=== PATIENT | male | born 1930 | race Hispanic/Latino ===

== ENCOUNTER 2017-01-19 18:47 | Inpatient (IN) | payer MEDICARE ==
--- NOTE | 2017-01-19 19:08 | CT ---
PROCEDURE: CT HEAD WITHOUT CONTRAST. HISTORY: Slurred speech COMPARISON: Noncontrast head CT performed 01/18/16 TECHNIQUE: Axial computed tomography images were obtained through the head/brain without intravenous contrast. Radiation dose: Total exam DLP = 725.71 mGy-cm. This CT exam was performed using one or more of the following dose reduction techniques: Automated exposure control, adjustment of the mA and/or kV according to patient size, and/or use of iterative reconstruction technique. FINDINGS: HEMORRHAGE: No intracranial hemorrhage. BRAIN: Diffuse atrophy with prominence of the ventricles and sulci noted. No mass effect or edema. Dense intracranial atherosclerosis. Scattered periventricular and subcortical white matter hypodensities, which are nonspecific, but often seen with chronic microvascular ischemic disease. Please note that MRI with diffusion imaging is more sensitive in the detection of acute ischemic event. VENTRICLES: No hydrocephalus. CALVARIUM: Unremarkable. PARANASAL SINUSES: Unremarkable as visualized. No significant inflammatory changes. MASTOID AIR CELLS: Unremarkable as visualized. No inflammatory changes. OTHER FINDINGS: None. IMPRESSION: Generalized atrophy. Nonspecific white matter changes. Findings discussed with Dr. Wade on 01/19/17 at 7:05 p.m..
[2017-01-19 19:09] VITALS: BMI 21.5
[2017-01-19 19:24] LABS: BASO # 0.01 K/mm3 (0.0-2.0); BASO % 0.1 % (0.0-3.0); GRAN # 9.38 (1.4-6.5); GRAN % 96.8 % (50.0-68.0); HEMATOCRIT 40.5 % (42.0-52.0); LYMPH # 0.2 (1.2-3.4); LYMPH % 2.1 % (22.0-35.0); MEAN CELL VOLUME 96.4 fl (80.0-105.0); MEAN CORPUSCULAR HEMOGLOBIN 31.7 pg (25.0-35.0); MEAN CORPUSCULAR HGB CONC 32.8 g/dl (31.0-37.0); MEAN PLATELET VOLUME 10.5 fl (7.0-11.0); MONO # 0.1 (0.1-0.6); PLATELET COUNT 200 10^3/uL (120.0-450.0); RED CELL DISTRIBUTION WIDTH 12.5 % (11.5-14.5); WHITE BLOOD COUNT 9.7 10^3/ul (4.5-11.0)
[2017-01-19 19:35] LABS: ALB/GLOB RATIO 1.5 (1.1-1.8); ALKALINE PHOSPHATASE 92 U/L (38-126); ALT/SGPT 47 U/L (7-56); AST/SGOT 31 U/L (17-59); BILIRUBIN,TOTAL 0.7 mg/dL (0.2-1.3); BLOOD UREA NITROGEN 20 mg/dL (7-21); CALCIUM 9.2 mg/dL (8.4-10.5); CARBON DIOXIDE 32 mmol/L (21-33); CHLORIDE 100 mmol/L (98-107); CHOLESTEROL 127 mg/dL (130-200); GFR AFRICAN-AMERICAN > 60; GLUCOSE,RANDOM 119 mg/dL (70-110); SODIUM 141 mmol/L (132-148); TOTAL PROTEIN 6.4 g/dL (5.8-8.3)
[2017-01-19 19:36] LABS: INR 1.13 (0.93-1.08); PARTIAL THROMBOPLASTIN TIME 28.3 Seconds (25.1-36.5)
--- NOTE | 2017-01-19 19:44 | EDPD ---
HPI Stroke - General Time Seen by Provider: 01/19/17 18:50 Chief Complaint: Weakness/Neurological Deficit Historian: Patient, Family, EMS - History of Present Illness Narrative History of Present Illness (Free Text): 01/19/17 19:41 Patient is an 87 yo male, past medical history of hypertension, present to the Emergency Department with and upkeep mechanic with history of intermittent slurred speech since 3:10 pm today. Patient reportedly was in his normal state of health this morning and for the past few days. He went to see a physician for pain in his right knee and received a "steroid shot" "into the right knee". Patient while at the doctor's office "stared to slur his speech". The family took patient home and noted that slurred speech had resolved half hour later although "his legs were weak". Patient reportedly was at his baseline mental status and speech until approximately 4:30 pm he developed slurred speech again "for a few minutes then it went away." Patient did not wish to come to the hospital and alurred speech resolved, then would "come and go". Family brought patient to ER as he again developed slurred speech prior to arrival, but upon arrival to ED it has again resolved. Patient denies headaches, denies visual symptoms, denies chest pain or palpitations or shortness of breath. Reports constipation, denies incontinence of urine or stool. Denies recent trauma. Denies neck pain or dizziness. Date:: 01/19/17 Time: 15:10 Timing: Intermittent rTPA Inclusion/Exclusion - Refusal of Treatment Patient Refused Treatment: Yes - Inclusion Criteria for Altepase The Clinical Diagnosis of Ischemic Stroke That is Causing a Potentially Disabling Neurological Deficit: Yes Risk/Benefit Discussed With Patient/Family Member Present: Yes - Warning to TPA With Conditions Following Conditions Weighed Against Anticipated Benefit: Yes Condition: Stroke Serevity Too Mild, Rapid Improvement, Age Greater Than 75 years Additional Condition (For 3-4.5 Hour Window): Age Greater Than 80 Past Medical History - Infectious Disease Hx of Infectious Diseases: None - Tetanus Immunization Tetanus Immunization: Unknown - Cardiac Hx Hypertension: Yes - Pulmonary Hx Respiratory Disorders: No - Neurological Hx Dementia: Yes Hx Paralysis: No - HEENT Hx HEENT Disorder: No (WEARS RX GLASSES) Hx Deafness: Yes (hard of hearing) - Renal Hx Renal Disorder: No - Endocrine/Metabolic Hx Endocrine Disorders: No - Hematological/Oncological Hx Blood Transfusions: No Hx Blood Transfusion Reaction: No - Integumentary Hx Dermatological Disorder: No - Musculoskeletal/Rheumatological Hx Arthritis: Yes (hands and knees) - Gastrointestinal Hx Gastrointestinal Disorders: Yes (constipation) - Genitourinary/Gynecological Hx Genitourinary Disorders: Yes (URINARY FRQUENCY) Hx Prostate Problems: Yes (PROSTATE CA) - Psychiatric Hx Emotional Abuse: No Hx Physical Abuse: No Hx Substance Use: No - Past Surgical History Past Surgical History: Non-Contributing - Surgical History Other/Comment: left femoral fracture - Anesthesia Hx Anesthesia Reactions: No Hx Malignant Hyperthermia: No - Suicidal Assessment Feels Threatened In Home Enviroment: No Allergies/Home Meds Allergies/Adverse Reactions: Allergies No Known Allergies Allergy (Verified 01/19/17 19:11) Home Medications: Home Meds Medication Instructions Recorded Confirmed Lorazepam [Ativan] 0.5 mg PO HS 01/19/17 01/19/17 Lubiprostone [Amitiza] 8 mcg PO DAILY 01/19/17 01/19/17 amLODIPine [Norvasc] 2.5 mg PO DAILY 01/19/17 01/19/17 Review of Systems - Review of Systems Constitutional: Fatigue. absent: Fevers Eyes: absent: Vision Changes, Eye Pain ENT: absent: Hearing Changes, Sore Throat Respiratory: absent: SOB Cardiovascular: absent: Chest Pain, Edema, MENA Gastrointestinal: absent: Abdominal Pain, Nausea, Vomiting Genitourinary Male: absent: Dysuria, Frequency Musculoskeletal: absent: Back Pain, Neck Pain Skin: absent: Rash Neurological: Gait Changes, Speech Changes, Facial Droop. absent: Headache, Dizziness, Focal Weakness, Seizure Endocrine: absent: Polyuria Hemo/Lymphatic: absent: Easy Bleeding Psychiatric: absent: Depression ED Stroke Physical Exam Vital Signs Reviewed: Yes Temperature: Afebrile Appearance: Positive for: Non-Toxic Pain Distress: None Mental Status: Positive for: Alert and Oriented X 3 Finger Stick Blood Glucose: 110 - Systems Exam Head: Present: Atraumatic Pupils: Present: PERRL Extroacular Muscles: Present: EOMI, Other (visual acuity and visual cornelius intact) Mouth: Present: Moist Mucous Membranes Pharnyx: No: ERYTHEMA Neck: Present: Normal Range of Motion. No: Meningeal Signs, MIDLINE TENDERNESS , Bruit Respiratory/Chest: Present: Clear to Auscultation. No: Respiratory Distress Cardiovascular: Present: Regular Rate and Rhythm, Murmurs Abdomen: Present: Distention. No: Tenderness, Peritoneal Signs Rectal: No: Gross Blood Back: No: CVA Tenderness, Midline Tenderness Upper Extremity: No: Cyanosis, Edema Lower Extremity: Present: NORMAL PULSES, Neurovascularly Intact. No: Edema, CALF TENDERNESS Neurologic: Present: CN II-XII Intact (mild facial asymmetry, ? slight droop right face), Speech Normal (mild slurred speech), Normal Sensory Function, Norm Deep Tendon Reflexes. No: Pronator Drift, Dysmetric Finger to Nose, Dysmetric Heel to Chin Skin: Present: Warm Psychiatric: Present: Alert, Oriented x 3, Normal Insight, Normal Concentration Medical Decision Making ED Course and Treatment: 01/19/17 20:08 Patient's history obtained from patient, , and upkeep mechanic. Patient reportedly with similar episode of slurred speech "after a steroid shot in his leg" "two months ago" but "it went away and he never had any problems afterwards ". Patient and family state that he was in his normal state of health this morning, and developed symptoms while at physician's office starting at 3:10 pm. He denies headache, denies chest pain, denies shortness of breath. There is no rash or angioedema, no wheezing. Upon arrival to the ED he was evaluated in stretcher with and upkeep mechanic, who state that "he is back to normal". CODE STROKE was called as he had been symptomatic and it was described as intermittent since 3:10 pm. INITIAL EXAM HE HAD NO SLURRED SPEECH. Upon return from CT head, he was re-examined at 19:10 and had mild slurred speech, no facial droop or focal extremity weakness. Case d/w Dr. Adriane jaimes, neurology. As symptoms mild, with subsequent resolution of slurred speech on re-exam at 20:00, patient and family did not wish for TPA as risks/benefits reviewed and symptoms again resolved. On examination, the patient denied headache or chest pain or sob. EKG revealed pacs, st changes anterior leads which were noted on prior EKG, clinically correlated with symptoms of NO CHEST PAIN OR SOB. PMD is Dr. Koroma, will admit for serial exams, monitoring, neuro consultation. ASA ordered. He is at baseline at this time as per family. CXR appears unchanged from previous 01/09. Denies chest pain or sob. Carotid ultrasound ordered as per Dr. Adriane Jaimes, result pending at time of admission at 2100, endorsed to admitting team to follow-up results. - Lab Interpretations Lab Results: 01/19/17 19:18 01/19/17 19:18 Lab Results 01/19/17 19:18: Blood Type Pending, Antibody Screen Pending, BBK History Checked Patient has bt 01/19/17 19:18: Sodium 141, Potassium 4.0, Chloride 100, Carbon Dioxide 32, Anion Gap 13, BUN 20, Creatinine 0.7 L, Est GFR ( Amer) > 60, Est GFR ( Non-Af Amer) > 60, Random Glucose 119 H, Calcium 9.2, Total Bilirubin 0.7, AST 31, ALT 47, Alkaline Phosphatase 92, Total Creatine Kinase 34 L, Troponin I Pending, Total Protein 6.4, Albumin 3.9, Globulin 2.6, Albumin/Globulin Ratio 1.5, Triglycerides 44, Cholesterol 127 L, LDL Cholesterol Direct Pending, HDL Cholesterol 48 01/19/17 19:18: PT 12.4, INR 1.13 H, APTT 28.3 01/19/17 19:18: WBC 9.7, RBC 4.20, Hgb 13.3 L, Hct 40.5 L, MCV 96.4, MCH 31.7, MCHC 32.8, RDW 12.5, Plt Count 200, MPV 10.5, Gran % 96.8 H, Lymph % (Auto) 2.1 L, Callaway % (Auto) 1.0, Eos % (Auto) 0.0 L, Baso % (Auto) 0.1, Gran # 9.38 H, Lymph # 0.2 L, Callaway # 0.1, Eos # 0.0, Baso # 0.01, Neutrophils % (Manual) Pending, Lymphocytes % (Manual) Pending, Monocytes % (Manual) Pending - RAD Interpretation Radiology Orders: 01/19/17 18:52 HEAD W/O (CODE STROKE) [CT] Stat 01/19/17 18:56 CXR [CHEST ONE VIEW] [RAD] Stat 01/19/17 19:14 CAROTID & VERTEBRAL DUPLEX [US] Stat - EKG Interpretation EKG Interpretation (Text): 01/19/17 19:56 EKG at 19:10 normal sinus rhythm with first degree av block, left ventricular hypertrophy, similar to prior EKG 01/19/17 20:01 Interpreted by ED Physician: Yes Type: 12 lead EKG Comparison: Similar to previous EKG NIHSS Scale ([place]) Time Performed: 19:47 - How Severe is the Stoke Baseline Level of Consciousness: 0=Alert LOC to Questions: 0=Both comments correct LOC to commands: 0=Obeys both correctly Best Gaze: 0=Normal Visual: 0=No visual loss Facial: 1=Minor asymmetry Motor Arm - Left: 0=No drift Motor Arm - Right: 0=No drift Motor Leg - Left: 0=No drift Motor Leg - Right: 0=No drift Limb Ataxia: 0=Absent Sensory: 0=Normal Best Language: 0=No aphasia Dysarthia: 1=Mild to moderate slurring Extinction & Inattention (Neglect): 0=Normal, no object Score: 2 Risk Level: Minor Stroke Risk Disposition/Present on Arrival - Present on Arrival Any Indicators Present on Arrival: No History of DVT/PE: No History of Uncontrolled Diabetes: No Urinary Catheter: No History of Decub. Ulcer: No History Surgical Site Infection Following: None - Disposition Have Diagnosis and Disposition been Completed?: Yes Diagnosis: CVA (cerebral vascular accident), Abnormal EKG, Slurred speech Disposition: HOSPITALIZED Disposition Time: 20:00 Patient Plan: Admission, Telemetry Patient Problems: Current Active Problems Problem Status Onset Abnormal EKG Acute CVA (cerebral vascular accident) Acute Condition: SERIOUS
[2017-01-19 19:48] LABS: TROPONIN I 0.02 ng/mL
[2017-01-19 19:59] LABS: NEUTROPHIL 95 % (50.0-70.0); PLATELET ESTIMATE NORMAL (NORMAL)
--- NOTE | 2017-01-19 22:28 | CP.PCM.HP ---
<Juancho Bingham - Last Filed: 01/20/17 07:33> History of Present Illness - History of Present Illness History of Present Illness: CC: Slurred speech and overall weakness This is a 87 year old male with a past medical history of hypertension and arthritis who comes into the emergency department complaining of new onset slurred speech and overall weakness since 3:10pm. this afternoon. The patient reports going to Dr. Dalton his pain management doctor for a steroid injection into his right knee and soon after began to experience slurred speech and generalized weakness. The patient then went home and the slurred speech and weakness improved however shortly thereafter the symptoms returned and his niece and aide decided it was best to come in. The patient reports lightheadedness in conjunction with the symptoms. The patient denies chest pain , shortness of breath, sore throat, abdominal pain, changes in vision, constipation, diarrhea, or any other complaints. PMD: Dr. Koroma Past medical history: see HPI Medications: Norvasc Allergies: NKDA Social: Social drinker. Denies smoking or illicit drug use Present on Admission - Present on Admission Any Indicators Present on Admission: No Review of Systems - Constitutional Constitutional: Weakness. absent: Chills, Fever, Frequent Falls, Headache, Night Sweats, Snoring, Weight Loss - EENT Eyes: absent: Blurred Vision, Diplopia, Discharge, Dry Eye, Itchy Eyes, Loss of Peripheral Vision, Loss of Vision Ears: absent: Ear Discharge, Disequilibrium, Dizziness Nose/Mouth/Throat: absent: Nasal Congestion, Nose Pain, Dry Mouth, Dysphagia, Mouth Pain - Cardiovascular Cardiovascular: absent: Chest Pain, Claudication, Diaphoresis, Dyspnea, Edema, Irregular Heart Rhythm, Orthopnea, Palpitations - Respiratory Respiratory: absent: Cough, Dyspnea, Hemoptysis, Dyspnea on Exertion, Snoring - Gastrointestinal Gastrointestinal: absent: Abdominal Pain, Belching, Cramping, Diarrhea, Heartburn, Loose Stools, Nausea, Vomiting - Genitourinary Genitourinary: absent: Change in Urinary Stream, Pyuria, Nocturia - Musculoskeletal Musculoskeletal: Muscle Weakness. absent: Myalgias, Stiffness, Tingling - Integumentary Integumentary: absent: Rash, Sores, Swelling - Neurological Neurological: absent: Disequilibrium, Dizziness, Numbness, Headaches, Syncope, Vertigo, Weakness - Psychiatric Psychiatric: Confusion - Endocrine Endocrine: absent: Palpitations, Polydipsia, Polyphagia, Polyuria - Hematologic/Lymphatic Hematologic: absent: Easy Bleeding, Easy Bruising Past Patient History - Infectious Disease Hx of Infectious Diseases: None - Tetanus Immunizations Tetanus Immunization: Unknown - Past Social History Smoking Status: Never Smoked - CARDIAC Hx Hypertension: Yes - PULMONARY Hx Respiratory Disorders: No - NEUROLOGICAL Hx Dementia: Yes Hx Paralysis: No - HEENT Hx HEENT Problems: No (WEARS RX GLASSES) Hx Deafness: Yes (hard of hearing) - RENAL Hx Chronic Kidney Disease: No - ENDOCRINE/METABOLIC Hx Endocrine Disorders: No - HEMATOLOGICAL/ONCOLOGICAL Hx Blood Transfusions: No Hx Blood Transfusion Reaction: No - INTEGUMENTARY Hx Dermatological Problems: No - MUSCULOSKELETAL/RHEUMATOLOGICAL Hx Arthritis: Yes (hands and knees) - GASTROINTESTINAL Hx Gastrointestinal Disorders: Yes (constipation) - GENITOURINARY/GYNECOLOGICAL Hx Genitourinary Disorders: Yes (URINARY FRQUENCY) Hx Prostate Problems: Yes (PROSTATE CA) - PSYCHIATRIC Hx Emotional Abuse: No Hx Physical Abuse: No Hx Substance Use: No - SURGICAL HISTORY Other/Comment: left femoral fracture - ANESTHESIA Hx Anesthesia Reactions: No Hx Malignant Hyperthermia: No Meds Home Medications: Home Medication List Medication Instructions Recorded Confirmed Type Aspirin [Ecotrin] 81 mg PO DAILY tabec 01/21/17 Rx Pantoprazole [Protonix] 40 mg PO DAILY #14 ect 01/21/17 Rx amLODIPine [Norvasc] 5 mg PO DAILY #15 tab 01/21/17 Rx Allergies/Adverse Reactions: Allergies Allergy/AdvReac Type Severity Reaction Status Date / Time No Known Allergies Allergy Verified 01/19/17 19:11 Physical Exam - Head Exam Head Exam: ATRAUMATIC, NORMAL INSPECTION, NORMOCEPHALIC - Eye Exam Eye Exam: EOMI, Normal appearance, PERRL Pupil Exam: NORMAL ACCOMODATION, PERRL. absent: Irregular, Miosis - ENT Exam ENT Exam: Mucous Membranes Moist, Normal Exam. absent: Normal Oropharynx, TM's Normal Bilaterally - Neck Exam Neck exam: Positive for: Normal Inspection. Negative for: Lymphadenopathy, Thyromegaly - Respiratory Exam Respiratory Exam: Clear to Auscultation Bilateral, NORMAL BREATHING PATTERN. absent: Accessory Muscle Use, Chest Wall Tenderness, Prolonged Expiratory Phase , Respiratory Distress - Cardiovascular Exam Cardiovascular Exam: REGULAR RHYTHM, +S1, +S2. absent: Gallop, Rubs - GI/Abdominal Exam GI & Abdominal Exam: Normal Bowel Sounds, Soft. absent: Organomegaly, Tenderness - Extremities Exam Extremities exam: Positive for: normal inspection. Negative for: joint swelling , tenderness Additional comments: M/S intact bilaterally in upper and lower extremities - Back Exam Back exam: NORMAL INSPECTION. absent: CVA tenderness (L), CVA tenderness (R), paraspinal tenderness, rash noted - Neurological Exam Neurological exam: Alert, CN II-XII Intact - Psychiatric Exam Psychiatric exam: Normal Affect, Normal Mood - Skin Skin Exam: Dry, Intact, Normal Color Results - Vital Signs Recent Vital Signs: Last Vital Signs Temp 98.1 F 01/19/17 18:55 Pulse 72 01/19/17 20:51 Resp 20 01/19/17 20:51 BP 137/80 01/19/17 20:30 Pulse Ox 97 01/19/17 20:51 - Labs Result Diagrams: 01/20/17 05:10 01/20/17 05:10 Assessment & Plan - Assessment and Plan (Free Text) Assessment: This is a 87 year old male with a past medical history of hypertension and arthritis who is being admitted for T.I.A.. Plan: 1. T.I.A. vs CVA vs. Acute hemorrhage -Head ct done in the emergency department showed general atrophy and non specific white matter changes. Negative for acute bleeding. -Carotid U/S ordered. Will f/u with results. -Neuro consulted. Will f/u with rec's. -Cardio consulted. Will f/u with rec's. -Head MRI ordered. Will f/u with results. -Swallow eval ordered. Will f/u with results. NPO until exam resulted. 2.Hypertension -cont home medications. 3. Arthritis -Recently received injection into the right knee. -No intervention required at this time. GI ppx -Protonix DVT PPX -SCD's <Ronel Roper - Last Filed: 01/23/17 20:42> Results - Vital Signs Recent Vital Signs: Last Vital Signs Temp 98.7 F 01/21/17 06:00 Pulse 64 01/21/17 09:06 Resp 19 01/21/17 06:00 BP 174/81 H 01/21/17 09:06 Pulse Ox 96 01/21/17 06:00 - Labs Result Diagrams: 01/21/17 06:00 01/21/17 06:00 Attending/Attestation - Attestation I have personally seen and examined this patient.: Yes I have fully participated in the care of the patient.: Yes I have reviewed all pertinent clinical information: Yes
[2017-01-19] MEDS: Sodium Chloride 0.9% 1,000 ML IV SCH (22:41)
[2017-01-20 06:45] LABS: BASO # 0.01 K/mm3 (0.0-2.0); BASO % 0.2 % (0.0-3.0); EOS % 0.2 % (1.5-5.0); GRAN # 5.79 (1.4-6.5); GRAN % 89.6 % (50.0-68.0); HEMATOCRIT 35.1 % (42.0-52.0); LYMPH # 0.2 (1.2-3.4); LYMPH % 3.3 % (22.0-35.0); MEAN CELL VOLUME 95.9 fl (80.0-105.0); MEAN CORPUSCULAR HEMOGLOBIN 30.9 pg (25.0-35.0); MEAN CORPUSCULAR HGB CONC 32.2 g/dl (31.0-37.0); MEAN PLATELET VOLUME 10.7 fl (7.0-11.0); MONO # 0.4 (0.1-0.6); MONO % 6.7 % (1.0-6.0); RED CELL DISTRIBUTION WIDTH 12.6 % (11.5-14.5); WHITE BLOOD COUNT 6.5 10^3/ul (4.5-11.0)
[2017-01-20 07:00] LABS: ALB/GLOB RATIO 1.2 (1.1-1.8); ALKALINE PHOSPHATASE 68 U/L (38-126); ALT/SGPT 53 U/L (7-56); AST/SGOT 42 U/L (17-59); BILIRUBIN,TOTAL 0.7 mg/dL (0.2-1.3); BLOOD UREA NITROGEN 24 mg/dL (7-21); CALCIUM 8.6 mg/dL (8.4-10.5); CARBON DIOXIDE 26 mmol/L (21-33); CHLORIDE 105 mmol/L (98-107); CHOLESTEROL 102 mg/dL (130-200); GFR AFRICAN-AMERICAN > 60; GLUCOSE,RANDOM 105 mg/dL (70-110); MAGNESIUM 1.9 mg/dL (1.7-2.2); PHOSPHOROUS 4.3 mg/dL (2.5-4.5); POTASSIUM 3.9 mmol/L (3.6-5.0); SODIUM 141 mmol/L (132-148); TOTAL PROTEIN 5.8 g/dL (5.8-8.3)
--- NOTE | 2017-01-20 08:45 | RAD ---
PROCEDURE: CHEST RADIOGRAPH, 1 VIEW HISTORY: Slurred speech COMPARISON: 01/05/2016. FINDINGS: LUNGS: The lungs are well inflated and clear. PLEURA: No pneumothorax or pleural fluid seen. CARDIOVASCULAR: The heart is normal in size. Atherosclerotic aortic arch calcifications are present. OSSEOUS STRUCTURES: No significant abnormalities. VISUALIZED UPPER ABDOMEN: Normal. OTHER FINDINGS: None. IMPRESSION: No active pulmonary disease.
--- NOTE | 2017-01-20 08:47 | CARD ---
APPROVED REPORT EKG Measurement Heart [id number] <Conclusion> Sinus rhythm with 1st degree AV block Left axis deviation RVCD ST elevations V1, V2 with peaked T wave V3, R/O acute ischemia/VT
[2017-01-20] MEDS: Sodium Chloride 0.9% 1,000 ML IV SCH (10:25)
--- NOTE | 2017-01-20 10:31 | CP.PCM.HP ---
History of Present Illness - History of Present Illness History of Present Illness: Neurology consult note for Dr. Carver's service - Hayden Carr PGY2 Reason for consult: TIA/CVA HPI: Patient is an 87 year-old male with past medical history of hypertension and arthritis who presented to [facility] c/o new onset slurred speech and overall weakness that started at approximately 3pm yesterday. The patient stated that he was at pain management doctor's office where he received a right knee injection and shortly thereafter began experiencing generalized weakness associated with slurred speech. He reported going home where his symptoms improved and then subsequently worsening which prompted his visit to the emergency room. He stated that he was lightheaded however denied any chest pain , palpitations, SOB, abdominal pain, nausea, vomiting, fever, chills, numbness, tingling, vision changes. 12point ROS as per HPI otherwise negative PMH: see above Medications: Reviewed and as per EMR Allergies: NKDA Social: Denies tobacco and illicit drug use; Social alcohol use Family Hx: Reviewed, non-contributory PMD: Dr. Koroma Present on Admission - Present on Admission Any Indicators Present on Admission: No Past Patient History - Infectious Disease Hx of Infectious Diseases: None - Tetanus Immunizations Tetanus Immunization: Unknown - Past Social History Smoking Status: Never Smoked - CARDIAC Hx Hypertension: Yes - PULMONARY Hx Respiratory Disorders: No - NEUROLOGICAL Hx Dementia: Yes Hx Paralysis: No - HEENT Hx HEENT Problems: No (WEARS RX GLASSES) Hx Deafness: Yes (hard of hearing) - RENAL Hx Chronic Kidney Disease: No - ENDOCRINE/METABOLIC Hx Endocrine Disorders: No - HEMATOLOGICAL/ONCOLOGICAL Hx Blood Transfusions: No Hx Blood Transfusion Reaction: No - INTEGUMENTARY Hx Dermatological Problems: No - MUSCULOSKELETAL/RHEUMATOLOGICAL Hx Arthritis: Yes (hands and knees) - GASTROINTESTINAL Hx Gastrointestinal Disorders: Yes (constipation) - GENITOURINARY/GYNECOLOGICAL Hx Genitourinary Disorders: Yes (URINARY FRQUENCY) Hx Prostate Problems: Yes (PROSTATE CA) - PSYCHIATRIC Hx Emotional Abuse: No Hx Physical Abuse: No Hx Substance Use: No - SURGICAL HISTORY Other/Comment: left femoral fracture - ANESTHESIA Hx Anesthesia Reactions: No Hx Malignant Hyperthermia: No Meds Allergies/Adverse Reactions: Allergies Allergy/AdvReac Type Severity Reaction Status Date / Time No Known Allergies Allergy Verified 01/19/17 19:11 Results - Vital Signs Recent Vital Signs: Last Vital Signs Temp 98.1 F 01/20/17 06:01 Pulse 70 01/20/17 06:01 Resp 19 01/20/17 06:01 BP 143/74 01/20/17 06:01 Pulse Ox 97 01/20/17 06:01 - Labs Result Diagrams: 01/20/17 05:10 01/20/17 05:10 Labs: Laboratory Results - last 24 hr 01/19/17 01/20/17 01/20/17 21:47 05:10 05:10 WBC 6.5 D RBC 3.66 Hgb 11.3 L D Hct 35.1 L MCV 95.9 MCH 30.9 MCHC 32.2 RDW 12.6 Plt Count 186 MPV 10.7 Gran % 89.6 H Lymph % (Auto) 3.3 L Kerr % (Auto) 6.7 H Eos % (Auto) 0.2 L Baso % (Auto) 0.2 Gran # 5.79 Lymph # 0.2 L Kerr # 0.4 Eos # 0.0 Baso # 0.01 Sodium 141 Potassium 3.9 Chloride 105 Carbon Dioxide 26 Anion Gap 14 BUN 24 H Creatinine 0.8 Est GFR ( Amer) > 60 Est GFR (Non-Af Amer) > 60 POC Glucose (mg/dL) 165 H Random Glucose 105 Calcium 8.6 Phosphorus 4.3 Magnesium 1.9 Total Bilirubin 0.7 AST 42 ALT 53 Alkaline Phosphatase 68 Total Protein 5.8 Albumin 3.2 Globulin 2.6 Albumin/Globulin Ratio 1.2 Triglycerides 28 L Cholesterol 102 L LDL Cholesterol Direct 58 HDL Cholesterol 37 01/20/17 07:45 WBC RBC Hgb Hct MCV MCH MCHC RDW Plt Count MPV Gran % Lymph % (Auto) Kerr % (Auto) Eos % (Auto) Baso % (Auto) Gran # Lymph # Kerr # Eos # Baso # Sodium Potassium Chloride Carbon Dioxide Anion Gap BUN Creatinine Est GFR ( Amer) Est GFR (Non-Af Amer) POC Glucose (mg/dL) 86 Random Glucose Calcium Phosphorus Magnesium Total Bilirubin AST ALT Alkaline Phosphatase Total Protein Albumin Globulin Albumin/Globulin Ratio Triglycerides Cholesterol LDL Cholesterol Direct HDL Cholesterol Assessment & Plan - Assessment and Plan (Free Text) Plan: 87 year-old male with history of hypertension and arthritis who presented to [facility] c/o new onset slurred speech and overall weakness that began yesterday afternoon. Neurology consulted for evaluation of possible TIA/CVA 1. Generalized weakness rule out TIA vs CVA 2. Hypertension 3. Arthritis -CT Head revealed generalized atrophy with nonspecific white matter changes -Brain MRI with contrast has already been ordered and is pending, we will follow up the results -Carotid doppler is pending read -Cardiology has been consulted and pending results of echocardiogram -Neurochecks -Physical therapy evaluation -Speech/swallow evaluation -Continue present medical management as per primary team -Further recommendations as per attending, Dr. Carver Patient seen and case discussed/reviewed with attending, Dr. Carver - Date & Time Date: 01/20/17 Time: 10:31
[2017-01-20] MEDS: LUBIPROSTONE 8 MCG PO SCH (10:34)
--- NOTE | 2017-01-20 12:12 | CP.PCM.CON ---
History of Present Illness - History of Present Illness History of Present Illness: Neurology consult note for Dr. Carver's service - Hayden Carr PGY2 Reason for consult: TIA/CVA HPI: Patient is an 87 year-old male with past medical history of hypertension and arthritis who presented to [facility]/o new onset slurred speech and overall weakness that started at approximately 3pm yesterday. The patient stated that he was at pain management doctor's office where he received a right knee injection and shortly thereafter began experiencing generalized weakness associated with slurred speech. He reported going home where his symptoms improved and then subsequently worsening which prompted his visit to the emergency room. He stated that he was lightheaded however denied any chest pain , palpitations, SOB, abdominal pain, nausea, vomiting, fever, chills, numbness, tingling, vision changes. 12point ROS as per HPI otherwise negative PMH: see above Medications: Reviewed and as per EMR Allergies: NKDA Social: Denies tobacco and illicit drug use; Social alcohol use Family Hx: Reviewed, non-contributory PMD: Dr. Koroma Past Patient History - Infectious Disease Hx of Infectious Diseases: None - Tetanus Immunizations Tetanus Immunization: Unknown - Past Social History Smoking Status: Never Smoked - CARDIAC Hx Hypertension: Yes - PULMONARY Hx Respiratory Disorders: No - NEUROLOGICAL Hx Dementia: Yes Hx Paralysis: No - HEENT Hx HEENT Problems: No (WEARS RX GLASSES) Hx Deafness: Yes (hard of hearing) - RENAL Hx Chronic Kidney Disease: No - ENDOCRINE/METABOLIC Hx Endocrine Disorders: No - HEMATOLOGICAL/ONCOLOGICAL Hx Blood Transfusions: No Hx Blood Transfusion Reaction: No - INTEGUMENTARY Hx Dermatological Problems: No - MUSCULOSKELETAL/RHEUMATOLOGICAL Hx Arthritis: Yes (hands and knees) - GASTROINTESTINAL Hx Gastrointestinal Disorders: Yes (constipation) - GENITOURINARY/GYNECOLOGICAL Hx Genitourinary Disorders: Yes (URINARY FRQUENCY) Hx Prostate Problems: Yes (PROSTATE CA) - PSYCHIATRIC Hx Emotional Abuse: No Hx Physical Abuse: No Hx Substance Use: No - SURGICAL HISTORY Other/Comment: left femoral fracture - ANESTHESIA Hx Anesthesia Reactions: No Hx Malignant Hyperthermia: No Meds Allergies/Adverse Reactions: Allergies Allergy/AdvReac Type Severity Reaction Status Date / Time No Known Allergies Allergy Verified 01/19/17 19:11 - Medications Medications: Current Medications Amlodipine Besylate (Norvasc) 2.5 mg PO DAILY [facility] Sodium Chloride (Sodium Chloride 0.9%) 1,000 mls @ 100 mls/hr IV .Q10H [facility] Last Admin: 01/20/17 10:25 Dose: 100 mls/hr Lorazepam (Ativan) 0.5 mg PO HS [facility] PRN Reason: Protocol Lubiprostone [ Amitiza] 8 Mcg (Home Med) 8 mcg PO DAILY [facility] Last Admin: 01/20/17 10:34 Dose: Not Given Pantoprazole Sodium (Protonix Inj) 40 mg IVP DAILY [facility] Last Admin: 01/20/17 10:25 Dose: 40 mg Physical Exam - Constitutional Appears: No Acute Distress - Head Exam Head Exam: ATRAUMATIC, NORMAL INSPECTION, NORMOCEPHALIC - Eye Exam Eye Exam: EOMI Pupil Exam: PERRL - ENT Exam ENT Exam: Mucous Membranes Moist - Neck Exam Neck exam: Positive for: Normal Inspection - Respiratory Exam Respiratory Exam: absent: Rales, Rhonchi, Wheezes - Cardiovascular Exam Cardiovascular Exam: +S1, +S2. absent: Gallop, JVD, Rubs - GI/Abdominal Exam GI & Abdominal Exam: Soft. absent: Distended, Firm, Guarding, Tenderness - Extremities Exam Extremities exam: Positive for: normal inspection - Neurological Exam Neurological exam: Alert, CN II-XII Intact Additional comments: EOMI ORAL CN2-12 grossly intact Motor function grossly intact Babinski downward going bilaterally Results - Vital Signs Recent Vital Signs: Last Vital Signs Temp 98.1 F 01/20/17 06:01 Pulse 70 01/20/17 06:01 Resp 19 01/20/17 06:01 BP 143/74 01/20/17 06:01 Pulse Ox 97 01/20/17 06:01 - Labs Result Diagrams: 01/20/17 05:10 01/20/17 05:10 Labs: Laboratory Results - last 24 hr 01/19/17 01/20/17 01/20/17 21:47 05:10 05:10 WBC 6.5 D RBC 3.66 Hgb 11.3 L D Hct 35.1 L MCV 95.9 MCH 30.9 MCHC 32.2 RDW 12.6 Plt Count 186 MPV 10.7 Gran % 89.6 H Lymph % (Auto) 3.3 L Hyde % (Auto) 6.7 H Eos % (Auto) 0.2 L Baso % (Auto) 0.2 Gran # 5.79 Lymph # 0.2 L Hyde # 0.4 Eos # 0.0 Baso # 0.01 Sodium 141 Potassium 3.9 Chloride 105 Carbon Dioxide 26 Anion Gap 14 BUN 24 H Creatinine 0.8 Est GFR ( Amer) > 60 Est GFR (Non-Af Amer) > 60 POC Glucose (mg/dL) 165 H Random Glucose 105 Calcium 8.6 Phosphorus 4.3 Magnesium 1.9 Total Bilirubin 0.7 AST 42 ALT 53 Alkaline Phosphatase 68 Total Protein 5.8 Albumin 3.2 Globulin 2.6 Albumin/Globulin Ratio 1.2 Triglycerides 28 L Cholesterol 102 L LDL Cholesterol Direct 58 HDL Cholesterol 37 01/20/17 07:45 WBC RBC Hgb Hct MCV MCH MCHC RDW Plt Count MPV Gran % Lymph % (Auto) Hyde % (Auto) Eos % (Auto) Baso % (Auto) Gran # Lymph # Hyde # Eos # Baso # Sodium Potassium Chloride Carbon Dioxide Anion Gap BUN Creatinine Est GFR ( Amer) Est GFR (Non-Af Amer) POC Glucose (mg/dL) 86 Random Glucose Calcium Phosphorus Magnesium Total Bilirubin AST ALT Alkaline Phosphatase Total Protein Albumin Globulin Albumin/Globulin Ratio Triglycerides Cholesterol LDL Cholesterol Direct HDL Cholesterol Assessment & Plan - Assessment and Plan (Free Text) Plan: 87 year-old male with history of hypertension and arthritis who presented to [facility] [place]/o new onset slurred speech and overall weakness that began yesterday afternoon. Neurology consulted for evaluation of possible TIA/CVA 1. Generalized weakness rule out TIA vs CVA 2. Hypertension 3. Arthritis -CT Head revealed generalized atrophy with nonspecific white matter changes -Brain MRI with contrast has already been ordered and is pending, we will follow up the results -Recommend ASA for stroke prevention -Carotid doppler is pending read -Cardiology has been consulted and pending results of echocardiogram -Neurochecks -Physical therapy evaluation -Speech/swallow evaluation -Continue present medical management as per primary team -Further recommendations as per attending, Dr. Carver Patient seen and case discussed/reviewed with attending, Dr. Carver - Date & Time Date: 01/20/17 Time: 12:12
--- NOTE | 2017-01-20 14:36 | CP.PCM.PN ---
<JackshabanaChas - Last Filed: 01/20/17 14:33> Subjective - Date & Time of Evaluation Date of Evaluation: 01/20/17 Time of Evaluation: 07:30 - Subjective Subjective: Patient seen and examined this AM with family friend at bedside. Patient was admitted for TIA vs. CVA overnight. No acute events were reported overnight. Patient noted to be oriented to self, not to place or time. Friend at baseline notes that patient's presentation today is his baseline. Patient denies weakness , slurring of his speech, chest pain, shortness of breath, abdominal pain, nausea, vomiting, fever or chills. Patient is scheduled for further work up today. Objective - Vital Signs/Intake and Output Vital Signs (last 24 hours): Temp Pulse Resp BP Pulse Ox 97.4 F L 86 18 143/74 97 01/20/17 12:00 01/20/17 12:00 01/20/17 12:00 01/20/17 06:01 01/20/17 06:01 Intake and Output: 01/20/17 01/20/17 06:59 18:59 Intake Total 800 Output Total 0 Balance 800 - Medications Medications: Current Medications Amlodipine Besylate (Norvasc) 2.5 mg PO DAILY [facility] Aspirin (Ecotrin) 81 mg PO DAILY [facility] Sodium Chloride (Sodium Chloride 0.9%) 1,000 mls @ 100 mls/hr IV .Q10H [facility] Last Admin: 01/20/17 10:25 Dose: 100 mls/hr Lorazepam (Ativan) 0.5 mg PO HS [facility] PRN Reason: Protocol Lubiprostone [ Amitiza] 8 Mcg (Home Med) 8 mcg PO DAILY [facility] Last Admin: 01/20/17 10:34 Dose: Not Given Pantoprazole Sodium (Protonix Inj) 40 mg IVP DAILY [facility] Last Admin: 01/20/17 10:25 Dose: 40 mg - Labs Labs: 01/20/17 05:10 01/20/17 05:10 PT 12.4 SECONDS (9.4-12.5) 01/19/17 19:18 INR 1.13 (0.93-1.08) H 01/19/17 19:18 APTT 28.3 Seconds (25.1-36.5) 01/19/17 19:18 - Head Exam Head Exam: ATRAUMATIC, NORMAL INSPECTION - Eye Exam Eye Exam: EOMI, PERRL - ENT Exam ENT Exam: Mucous Membranes Moist - Neck Exam Neck Exam: Full ROM - Cardiovascular Exam Cardiovascular Exam: REGULAR RHYTHM, +S1, +S2 - GI/Abdominal Exam GI & Abdominal Exam: Soft, Normal Bowel Sounds - Extremities Exam Extremities Exam: Full ROM, Normal Capillary Refill. absent: Calf Tenderness - Back Exam Back Exam: NORMAL INSPECTION. absent: CVA tenderness (L), CVA tenderness (R) - Neurological Exam Neurological Exam: Alert, Awake, CN II-XII Intact Neuro motor strength exam: Left Upper Extremity: 4, Right Upper Extremity: 4, Left Lower Extremity: 4, Right Lower Extremity: 4 Additional comments: Oriented to person, not to place, time, noted to be baseline for patient per family friend at bedside, Motor and sensory grossly intact - Psychiatric Exam Psychiatric exam: Normal Affect, Normal Mood - Skin Skin Exam: Dry, Intact, Normal Color, Warm Assessment and Plan - Assessment and Plan (Free Text) Assessment: 87 year old male with past medical history of hypertension and arthritis who presented to [facility] after developing slurring of speech adn generalized wekaness after visiting his pain management physician for steroid injection of his right knee. Patient has been consulted with neurology and currently undergoing further evaluation. Plan: 1. Slurred speech and generalized weakness with possible TIA vs. CVA - Patient at baseline on exam today - CT Head(01/19): Generalized atrophy with nonspecific white matter changes - Neurology(Dr. Adriane Carver) consulted, appreciate recs - ASA for stroke prevention - Carotid doppler done, pending official read - Echocardiogram done, pending official read - PT evaluation, recommending patient for at home PT work - Speech/swallow evaluation, no restrictions - Brain MRI, pending - Patient LDL is 58, will hold off on statin at this time 2. Hypertension - BP stable on admission - Continue home medications - monitor GI ppx: Protonix DVT ppx: SCDs case and plan discussed with attending <Adarsh Singh - Last Filed: 01/20/17 16:19> Objective - Vital Signs/Intake and Output Vital Signs (last 24 hours): Temp Pulse Resp BP Pulse Ox 97.4 F L 86 18 180/82 H 97 01/20/17 12:00 01/20/17 12:00 01/20/17 12:00 01/20/17 15:22 01/20/17 06:01 Intake and Output: 01/20/17 01/20/17 06:59 18:59 Intake Total 800 480 Output Total 0 0 Balance 800 480 - Medications Medications: Current Medications Amlodipine Besylate (Norvasc) 2.5 mg PO DAILY [facility] Last Admin: 01/20/17 15:22 Dose: 2.5 mg Aspirin (Ecotrin) 81 mg PO DAILY [facility] Last Admin: 01/20/17 15:23 Dose: 81 mg Lorazepam (Ativan) 0.5 mg PO [facility] PRN Reason: Protocol Lubiprostone [ Amitiza] 8 Mcg (Home Med) 8 mcg PO DAILY [facility] Last Admin: 01/20/17 10:34 Dose: Not Given Pantoprazole Sodium (Protonix Inj) 40 mg IVP DAILY [facility] Last Admin: 01/20/17 10:25 Dose: 40 mg - Labs Labs: 01/20/17 05:10 01/20/17 05:10 PT 12.4 SECONDS (9.4-12.5) 01/19/17 19:18 INR 1.13 (0.93-1.08) H 01/19/17 19:18 APTT 28.3 Seconds (25.1-36.5) 01/19/17 19:18 Attending/Attestation - Attestation I have personally seen and examined this patient.: Yes I have fully participated in the care of the patient.: Yes I have reviewed all pertinent clinical information, including history, physical exam and plan: Yes Notes (Text): 01/20/17 16:10 87 year old male with past medical history of hypertension and arthritis who presented with complaint of slurred speech and weakness, now improved. He was admitted to evaluate for TIA vs CVA. CT head showed generalized atrophy and nonspecific white matter changes. Continue with aspirin. LDL was 58. Neurology evaluation and PT evaluation was appreciated. He is pending carotid doppler, echocardiogram and MRI brain. He is on norvasc for hypertension. Family is at bedside and questions were answered. Adarsh Singh MD Hospitalist.
[2017-01-20] MEDS ORDERED: Gadodiamide 287 MG/ML VIAL (15ML) IV ONE (17:00)
--- NOTE | 2017-01-20 17:40 | MRI ---
PROCEDURE: MRI of the brain dated 01/20/2017. HISTORY: TIA. . COMPARISON: Comparison made with CT scan brain 01/19/2017. And MRI of the brain dated 06/18/2014. This examination is limited by motion artifact. TECHNIQUE: Multiplanar, multisequence MR images of the brain were obtained without intravenous contrast enhancement. FINDINGS: HEMORRHAGE: No acute parenchymal, subarachnoid nor extra-axial hemorrhage. No evidence of hemosiderin deposition is identified on gradient echo weighted sequence so far as can be seen. DWI: No evidence of an acute or early subacute infarction seen on diffusion imaging. 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 Moderate generalized volume loss. VENTRICLES: No obstructive hydrocephalus CRANIUM: Unremarkable. ORBITS: Changes of bilateral cataract surgery again noted PARANASAL SINUSES/MASTOIDS: Mild mucosal thickening seen in the ethmoid air complex. Nasal mucosa exhibits polypoid like appearance; rule out nasal polyposis. VASCULAR SYSTEM: Visualized major vascular flow voids at skull base are patent. OTHER FINDINGS: None IMPRESSION: Very limited motion degraded study. No acute intracranial hemorrhage. 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 Moderate generalized volume loss.
--- NOTE | 2017-01-20 17:56 | US ---
PROCEDURE: Bilateral carotid artery duplex ultrasound HISTORY: Carotid stenosis PHYSICIAN(S): Suresh Foote MD. TECHNIQUE: Duplex sonography and color-flow Doppler were used to evaluate the carotid bifurcations and limited segments of the vertebral arteries bilaterally. FINDINGS: There is mild smooth echogenic plaque noted at the carotid bifurcations bilaterally. The peak systolic velocity in the proximal right internal carotid artery is 78 cm/sec. This corresponds to a 20 to 39% proximal right ICA stenosis. Normal systolic velocities are noted in the proximal right external carotid artery. There is antegrade flow in the right vertebral artery. The peak systolic velocity in the proximal left internal carotid artery is 73 cm/sec. This corresponds to a 20 to 39% proximal left ICA stenosis. Normal systolic velocities are noted in the proximal left external carotid artery. There is antegrade flow in the left vertebral artery. IMPRESSION: 1. Bilateral 20-39% proximal ICA stenoses. 2. Antegrade flow in both vertebral arteries.
--- NOTE | 2017-01-20 23:12 | CARD ---
APPROVED REPORT EXAM: Two-dimensional and M-mode echocardiogram with Doppler and color Doppler. INDICATION CVA/TIA 2D DIMENSIONS Left Atrium (2D)4.1 (1.6-4.0cm)IVSd1.1 (0.7-1.1cm) LVDd5.0 (3.9-5.9cm)PWd1.3 (0.7-1.1cm) LVDs3.5 (2.5-4.0cm)FS (%) 28.9 % LVEF (%)55.3 (>50%) M-Mode DIMENSIONS Aortic Root2.90 (2.2-3.7cm)Aortic Cusp Exc.1.90 (1.5-2.0cm) Aortic Valve AoV Peak Ktqftowy056.0cm/Girish Peak GR.8mmHg Mitral Valve MV E Tceqjzxg93.9cm/sMV A [place]578.0cm/sE/A ratio0.8 TDI E/Lateral E'0.0E/Medial E'0.0 Tricuspid Valve TR Peak [id number]/sRAP [id number] Peak Gr.30mmHg [id number] LEFT VENTRICLE The left ventricle is normal size. There is mild to moderate concentric left ventricular hypertrophy. The left ventricular function is normal. The left ventricular ejection fraction is within the normal range. There is normal LV segmental wall motion. Transmitral Doppler flow pattern is Grade I-abnormal relaxation pattern. RIGHT VENTRICLE The right ventricle is normal size. The right ventricle is mildly hypertrophied. The right ventricular systolic function is normal. ATRIA The left atrium is borderline dilated. The right atrium is mildly dilated. AORTIC VALVE The aortic valve is moderately thickened. There is trace aortic regurgitation. MITRAL VALVE The mitral valve is moderately thickened. Mitral regurgitation is mild to moderate. TRICUSPID VALVE There is moderate tricuspid regurgitation. There is mild pulmonary hypertension. GREAT VESSELS The aortic root is normal in size. The IVC is normal in size and collapses >50% with inspiration. <Conclusion> The left ventricle is normal size. There is mild to moderate concentric left ventricular hypertrophy. The left ventricular function is normal. The left ventricular ejection fraction is within the normal range. There is normal LV segmental wall motion. Transmitral Doppler flow pattern is Grade I-abnormal relaxation pattern. Mitral regurgitation is mild to moderate. There is moderate tricuspid regurgitation. There is mild pulmonary hypertension.
[2017-01-21 06:29] VITALS: RESP 19; TEMP 98.7; O2SAT 96
[2017-01-21 07:05] LABS: BASO # 0.01 K/mm3 (0.0-2.0); BASO % 0.1 % (0.0-3.0); EOS # 0.1 (0.0-0.7); EOS % 1.6 % (1.5-5.0); GRAN # 5.7 (1.4-6.5); HEMATOCRIT 36.4 % (42.0-52.0); LYMPH # 0.6 (1.2-3.4); LYMPH % 8.1 % (22.0-35.0); MEAN CELL VOLUME 95.3 fl (80.0-105.0); MEAN CORPUSCULAR HEMOGLOBIN 31.2 pg (25.0-35.0); MEAN CORPUSCULAR HGB CONC 32.7 g/dl (31.0-37.0); MEAN PLATELET VOLUME 10.5 fl (7.0-11.0); MONO # 1.2 (0.1-0.6); MONO % 15.2 % (1.0-6.0); RED CELL DISTRIBUTION WIDTH 12.8 % (11.5-14.5); WHITE BLOOD COUNT 7.6 10^3/ul (4.5-11.0)
[2017-01-21 07:17] LABS: ALB/GLOB RATIO 1.3 (1.1-1.8); ALKALINE PHOSPHATASE 90 U/L (38-126); ALT/SGPT 67 U/L (7-56); AST/SGOT 51 U/L (17-59); BILIRUBIN,TOTAL 0.5 mg/dL (0.2-1.3); BLOOD UREA NITROGEN 19 mg/dL (7-21); CALCIUM 8.6 mg/dL (8.4-10.5); CARBON DIOXIDE 28 mmol/L (21-33); CHLORIDE 104 mmol/L (98-107); GFR AFRICAN-AMERICAN > 60; GLUCOSE,RANDOM 89 mg/dL (70-110); POTASSIUM 3.4 mmol/L (3.6-5.0); SODIUM 140 mmol/L (132-148); TOTAL PROTEIN 5.9 g/dL (5.8-8.3)
[2017-01-21] MEDS ORDERED: Potassium Chloride 40 mEq/30 ml LIQ UD PO ONE (07:23)
[2017-01-21 09:08] VITALS: BP 174/81; PULSE 64
[2017-01-21] MEDS: LUBIPROSTONE 8 MCG PO SCH (09:15)
--- NOTE | 2017-01-21 15:46 | CP.PCM.DIS ---
<JEFF KATE - Last Filed: 01/21/17 15:37> Provider - Provider Date of Admission: 01/19/17 20:13 Attending physician: Debbie Patino MD Primary care physician: Joe Koroma MD Consults: Neuro: Wen Time Spent in preparation of Discharge (in minutes): 40 Hospital Course - Lab Results Lab Results: Most Recent Lab Values WBC 7.6 10^3/ul (4.5-11.0) 01/21/17 06:00 RBC 3.82 10^6/uL (3.5-6.1) 01/21/17 06:00 Hgb 11.9 g/dL (14.0-18.0) L 01/21/17 06:00 Hct 36.4 % (42.0-52.0) L 01/21/17 06:00 MCV 95.3 fl (80.0-105.0) 01/21/17 06:00 MCH 31.2 pg (25.0-35.0) 01/21/17 06:00 MCHC 32.7 g/dl (31.0-37.0) 01/21/17 06:00 RDW 12.8 % (11.5-14.5) 01/21/17 06:00 Plt Count 174 10^3/uL (120.0-450.0) 01/21/17 06:00 MPV 10.5 fl (7.0-11.0) 01/21/17 06:00 Gran % 75.0 % (50.0-68.0) H 01/21/17 06:00 Lymph % (Auto) 8.1 % (22.0-35.0) L 01/21/17 06:00 [place] % (Auto) 15.2 % (1.0-6.0) H 01/21/17 06:00 Eos % (Auto) 1.6 % (1.5-5.0) 01/21/17 06:00 Baso % (Auto) 0.1 % (0.0-3.0) 01/21/17 06:00 Gran # 5.70 (1.4-6.5) 01/21/17 06:00 Lymph # 0.6 (1.2-3.4) L 01/21/17 06:00 [place] # 1.2 (0.1-0.6) H 01/21/17 06:00 Eos # 0.1 (0.0-0.7) 01/21/17 06:00 Baso # 0.01 K/mm3 (0.0-2.0) 01/21/17 06:00 Neutrophils % (Manual) 95 % (50.0-70.0) H 01/19/17 19:18 Lymphocytes % (Manual) 4 % (22.0-35.0) L 01/19/17 19:18 Monocytes % (Manual) 1 % (1.0-6.0) 01/19/17 19:18 Platelet Evaluation Normal (NORMAL) 01/19/17 19:18 PT 12.4 SECONDS (9.4-12.5) 01/19/17 19:18 INR 1.13 (0.93-1.08) H 01/19/17 19:18 APTT 28.3 Seconds (25.1-36.5) 01/19/17 19:18 Sodium 140 mmol/L (132-148) 01/21/17 06:00 Potassium 3.4 mmol/L (3.6-5.0) L 01/21/17 06:00 Chloride 104 mmol/L (98-107) 01/21/17 06:00 Carbon Dioxide 28 mmol/L (21-33) 01/21/17 06:00 Anion Gap 11 (10-20) 01/21/17 06:00 BUN 19 mg/dL (7-21) 01/21/17 06:00 Creatinine 0.7 mg/dL (0.8-1.5) L 01/21/17 06:00 Est GFR ( Amer) > 60 01/21/17 06:00 Est GFR (Non-Af Amer) > 60 01/21/17 06:00 POC Glucose (mg/dL) 104 mg/dL (65-110) 01/21/17 11:26 Random Glucose 89 mg/dL (70-110) 01/21/17 06:00 Hemoglobin A1c 5.2 % (4.2-6.5) 01/19/17 19:18 Calcium 8.6 mg/dL (8.4-10.5) 01/21/17 06:00 Phosphorus 4.3 mg/dL (2.5-4.5) 01/20/17 05:10 Magnesium 1.9 mg/dL (1.7-2.2) 01/20/17 05:10 Total Bilirubin 0.5 mg/dL (0.2-1.3) 01/21/17 06:00 AST 51 U/L (17-59) 01/21/17 06:00 ALT 67 U/L (7-56) H 01/21/17 06:00 Alkaline Phosphatase 90 U/L (38-126) 01/21/17 06:00 Total Creatine Kinase 34 U/L (35-230) L 01/19/17 19:18 Troponin I 0.02 ng/mL D 01/19/17 19:18 Total Protein 5.9 g/dL (5.8-8.3) 01/21/17 06:00 Albumin 3.3 g/dL (3.0-4.8) 01/21/17 06:00 Globulin 2.6 gm/dL 01/21/17 06:00 Albumin/Globulin Ratio 1.3 (1.1-1.8) 01/21/17 06:00 Triglycerides 28 mg/dL (35-160) L 01/20/17 05:10 Cholesterol 102 mg/dL (130-200) L 01/20/17 05:10 LDL Cholesterol Direct 58 mg/dL (0-129) 01/20/17 05:10 HDL Cholesterol 37 mg/dL (29-60) 01/20/17 05:10 Blood Type O POSITIVE 01/19/17 19:18 Antibody Screen Negative 01/19/17 19:18 BBK History Checked Patient has bt 01/19/17 19:18 - Hospital Course Hospital Course: Patient is a87 year old male with a past medical history of hypertension and arthritis who came into the emergency department complaining of new onset slurred speech and overall weakness for one day. The patient reported going to Dr. Dalton his pain management doctor for a steroid injection into his right knee and soon after began to experience slurred speech and generalized weakness. The patient then went home and the slurred speech and weakness improved however shortly thereafter the symptoms returned and his niece and aide decided it was best to come in. The patient reported lightheadedness in conjunction with the symptoms. In the ED, labs and imaging was obtained. CT head showed gneralized atrophy with non-specific white matter changes. Carotid US was negative. Labs were unremarkable. Patient was admitted for evaluation and treatment for possible TIA vs Stroke. Neuro was consulted. PT was consulted MRI was ordered and showed mild chornic white matter ischemic changes with multiple discrete lacunar type infarcts scattered about the deep and subcortical white matter, basal nuclei, and brainstem. Today, patient was seen and examined at bedside. Pt denies any focal weakness. Pt denied CP, SOB, nausea , vomiting, chills, fever, abdominal pain, SORIA, or dizziness. On exam, pt did not have any focal deficits. As patient was medically stable and clear from neurology standpoint. Patient was discharged home. Patient was instructed to increase his Norvasc dose to 5 mg as he remained hypertensive on current Norvasc dose, limit NSAID use, and follow up as an outpatient. Discharge Exam - Head Exam Head Exam: ATRAUMATIC, NORMAL INSPECTION - Eye Exam Eye Exam: EOMI, PERRL - ENT Exam ENT Exam: Mucous Membranes Moist - Neck Exam Neck exam: Full Rom - Respiratory Exam Respiratory Exam: Clear to PA & Lateral. absent: Accessory Muscle Use, Rales, Rhonchi, Wheezes, Respiratory Distress, Stridor - Cardiovascular Exam Cardiovascular Exam: RRR, +S1, +S2. absent: Diastolic murmur, Gallop, Rubs, Systolic Murmur - GI/Abdominal Exam GI & Abdominal Exam: Normal Bowel Sounds, Soft. absent: Distended, Guarding, Rebound, Tenderness - Extremities Exam Extremities exam: normal inspection - Neurological Exam Neurological exam: Alert, Oriented x3 - Psychiatric Exam Psychiatric exam: Normal Affect, Normal Mood - Skin Skin Exam: Dry, Intact, Normal Color Discharge Plan - Discharge Medications Prescriptions: amLODIPine [Norvasc] 5 mg PO DAILY #15 tab Pantoprazole [Protonix] 40 mg PO DAILY #14 ect - Follow Up Plan Condition: SERIOUS Disposition: HOME/ ROUTINE Instructions: Syncope (DC), Syncope (GEN), Stroke (DC) Additional Instructions: 1. Follow up with PMD within 1 week 2. Follow up with neurologist within 1 week 3. Start Norvasc 5 mg instead of 2.5 4. Resume all other home medications as prescribed 5. Limit NSAID use 6. Return to ED if symptoms worsen Referrals: Matthew Carver MD [Staff Provider] - Joe Koroma MD [Primary Care Provider] - <Adarsh Singh - Last Filed: 01/21/17 16:03> Provider - Provider Date of Admission: 01/19/17 20:13 Attending physician: Debbie Patino MD Primary care physician: Joe Koroma MD Hospital Course - Lab Results Lab Results: Most Recent Lab Values WBC 7.6 10^3/ul (4.5-11.0) 01/21/17 06:00 RBC 3.82 10^6/uL (3.5-6.1) 01/21/17 06:00 Hgb 11.9 g/dL (14.0-18.0) L 01/21/17 06:00 Hct 36.4 % (42.0-52.0) L 01/21/17 06:00 MCV 95.3 fl (80.0-105.0) 01/21/17 06:00 MCH 31.2 pg (25.0-35.0) 01/21/17 06:00 MCHC 32.7 g/dl (31.0-37.0) 01/21/17 06:00 RDW 12.8 % (11.5-14.5) 01/21/17 06:00 Plt Count 174 10^3/uL (120.0-450.0) 01/21/17 06:00 MPV 10.5 fl (7.0-11.0) 01/21/17 06:00 Gran % 75.0 % (50.0-68.0) H 01/21/17 06:00 Lymph % (Auto) 8.1 % (22.0-35.0) L 01/21/17 06:00 [place] % (Auto) 15.2 % (1.0-6.0) H 01/21/17 06:00 Eos % (Auto) 1.6 % (1.5-5.0) 01/21/17 06:00 Baso % (Auto) 0.1 % (0.0-3.0) 01/21/17 06:00 Gran # 5.70 (1.4-6.5) 01/21/17 06:00 Lymph # 0.6 (1.2-3.4) L 01/21/17 06:00 [place] # 1.2 (0.1-0.6) H 01/21/17 06:00 Eos # 0.1 (0.0-0.7) 01/21/17 06:00 Baso # 0.01 K/mm3 (0.0-2.0) 01/21/17 06:00 Neutrophils % (Manual) 95 % (50.0-70.0) H 01/19/17 19:18 Lymphocytes % (Manual) 4 % (22.0-35.0) L 01/19/17 19:18 Monocytes % (Manual) 1 % (1.0-6.0) 01/19/17 19:18 Platelet Evaluation Normal (NORMAL) 01/19/17 19:18 PT 12.4 SECONDS (9.4-12.5) 01/19/17 19:18 INR 1.13 (0.93-1.08) H 01/19/17 19:18 APTT 28.3 Seconds (25.1-36.5) 01/19/17 19:18 Sodium 140 mmol/L (132-148) 01/21/17 06:00 Potassium 3.4 mmol/L (3.6-5.0) L 01/21/17 06:00 Chloride 104 mmol/L (98-107) 01/21/17 06:00 Carbon Dioxide 28 mmol/L (21-33) 01/21/17 06:00 Anion Gap 11 (10-20) 01/21/17 06:00 BUN 19 mg/dL (7-21) 01/21/17 06:00 Creatinine 0.7 mg/dL (0.8-1.5) L 01/21/17 06:00 Est GFR ( Amer) > 60 01/21/17 06:00 Est GFR (Non-Af Amer) > 60 01/21/17 06:00 POC Glucose (mg/dL) 104 mg/dL (65-110) 01/21/17 11:26 Random Glucose 89 mg/dL (70-110) 01/21/17 06:00 Hemoglobin A1c 5.2 % (4.2-6.5) 01/19/17 19:18 Calcium 8.6 mg/dL (8.4-10.5) 01/21/17 06:00 Phosphorus 4.3 mg/dL (2.5-4.5) 01/20/17 05:10 Magnesium 1.9 mg/dL (1.7-2.2) 01/20/17 05:10 Total Bilirubin 0.5 mg/dL (0.2-1.3) 01/21/17 06:00 AST 51 U/L (17-59) 01/21/17 06:00 ALT 67 U/L (7-56) H 01/21/17 06:00 Alkaline Phosphatase 90 U/L (38-126) 01/21/17 06:00 Total Creatine Kinase 34 U/L (35-230) L 01/19/17 19:18 Troponin I 0.02 ng/mL D 01/19/17 19:18 Total Protein 5.9 g/dL (5.8-8.3) 01/21/17 06:00 Albumin 3.3 g/dL (3.0-4.8) 01/21/17 06:00 Globulin 2.6 gm/dL 01/21/17 06:00 Albumin/Globulin Ratio 1.3 (1.1-1.8) 01/21/17 06:00 Triglycerides 28 mg/dL (35-160) L 01/20/17 05:10 Cholesterol 102 mg/dL (130-200) L 01/20/17 05:10 LDL Cholesterol Direct 58 mg/dL (0-129) 01/20/17 05:10 HDL Cholesterol 37 mg/dL (29-60) 01/20/17 05:10 Blood Type O POSITIVE 01/19/17 19:18 Antibody Screen Negative 01/19/17 19:18 BBK History Checked Patient has bt 01/19/17 19:18 Attending/Attestation - Attestation I have personally seen and examined this patient.: Yes I have fully participated in the care of the patient.: Yes I have reviewed all pertinent clinical information, including history, physical exam and plan: Yes Notes (Text): 01/21/17 16:01 87 year old male with past medical history of hypertension and arthritis who presented with complaint of slurred speech and weakness, now resolved. He was admitted to evaluate for possible TIA vs CVA. CT head showed generalized atrophy and nonspecific white matter changes. MRI brain was reviewed as above. He is on aspirin. LDL was 58. He was seen by neurology and PT. He is on norvasc for hypertension; dose was increased to 5 mg. Patient is discharged home to follow up with pmd and neurology. Family is at bedside and questions were answered. Adarsh Singh MD Hospitalist.
--- NOTE | 2017-01-23 13:59 | PQF CVATIA ---
This form is a permanent part of the medical record Dr. Singh, Clarification of your documentation is requested to better reflect the severity of illness and intensity of treatment of your patient. Indicators present:patient presented with complaint of slurred speech and weakness which improved during this admission. Please clarify if this is a TIA or CVA with NIHSS of 2 per ERD documentation. [] Altered mental status [] Aphasia [] Dysphagia [] Dysphasia [] Facial droop/numbness [] Gait disturbance [] Hemiparesis/plegia [] Speech impairment [x] Weakness [] Neuro Consult [] CT/MRI Findings [] Other: [] slurred speech Location in the medical record that reflects the above clinical findings: [] Treatment Provided: [] PHYSICIAN'S RESPONSE Based on your medical judgment of the clinical indicators outlined above, are you treating this patient for a known or suspected: [] Acute Cerebrovascular Accident (CVA) Please specify type i.e.; embolic, hemorrhagic, ischemic. Please specify the artery involved if known. [x] Transient Ischemic Accident (TIA) [] Prolonged reversible ischemic neurological disorder [] Other, please indicate: [] [] If unable to determine, please check the box, sign and date. Present On Admission (POA) Indicator: [] Present at the time of admission [] Not present at the time of admission [] Clinically Undetermined In responding to this query, please exercise your independent professional judgment. The fact that a question is asked does not imply that any particular answer is desired or expected. Thank you for your clarification on this documentation. If you have any questions please call:[ ] * Thank you, [ ]jessica TORRESinventory administrator KANA
== END 2017-01-21 17:50 | disposition home or self-care (01) | DRG 69 ==
LOC: ED 18:47 → ERH 20:13 → 2RNO 20:59
PROVIDERS: ADMIT Hospitalist; ATTEND Hospitalist
DX: G45.9 Transient cerebral ischemic attack, unspecified (principal); I10 Essential (primary) hypertension; R47.81 Slurred speech; M19.90 Unspecified osteoarthritis, unspecified site; R53.1 Weakness; R29.702 NIHSS score 2

== ENCOUNTER 2017-05-29 10:11 | Emergency (ER) | payer MEDICARE ==
[2017-05-29 10:20] VITALS: TEMP 97.2; O2SAT 98
[2017-05-29 10:45] VITALS: BMI 18.3
--- NOTE | 2017-05-29 10:45 | ED PDOC ---
Arrival/HPI - General Time Seen by Provider: 05/29/17 10:44 Historian: Patient - History of Present Illness Narrative History of Present Illness (Text): 05/29/17 10:45 87 year old male, whose past medical history includes hypertension, anxiety/ Depression, dementia, Arthritis, Anemia, and s/p L Hip fx repair, presents to the emergency department s/p unwitnessed fall out of bed. Patient states he as trying to get out of bed when he fell and hit the bed side table. He states he felt dizzy after the fall and reports left sided rib pain, but denies any LOC, fever, chills, chest pain, shortness of breath, nausea, vomiting, diarrhea, urinary symptoms, back pain, neck pain, headache, or any other complaints. PMD: Dr. Koroma Symptom Onset: Sudden Symptom Course: Unchanged Activities at Onset: Light Context: Other (Fall) Past Medical History - Provider Review Nursing Documentation Reviewed: Yes - Infectious Disease Hx of Infectious Diseases: None - Tetanus Immunization Tetanus Immunization: Unknown - Cardiac Hx Hypertension: Yes - Pulmonary Hx Respiratory Disorders: No - Neurological Hx Dementia: Yes Hx Paralysis: No - HEENT Hx HEENT Disorder: No (WEARS RX GLASSES) Hx Deafness: Yes (hard of hearing) - Renal Hx Renal Disorder: No - Endocrine/Metabolic Hx Endocrine Disorders: No - Hematological/Oncological Hx Blood Transfusions: No Hx Blood Transfusion Reaction: No - Integumentary Hx Dermatological Disorder: No - Musculoskeletal/Rheumatological Hx Arthritis: Yes (hands and knees) - Gastrointestinal Hx Gastrointestinal Disorders: Yes (constipation) - Genitourinary/Gynecological Hx Genitourinary Disorders: Yes (URINARY FRQUENCY) Hx Prostate Problems: Yes (PROSTATE CA) - Psychiatric Hx Emotional Abuse: No Hx Physical Abuse: No Hx Substance Use: No - Past Surgical History Past Surgical History: Non-Contributing - Surgical History Other/Comment: left femoral fracture - Anesthesia Hx Anesthesia Reactions: No Hx Malignant Hyperthermia: No - Suicidal Assessment Feels Threatened In Home Enviroment: No Family/Social History - Physician Review Nursing Documentation Reviewed: Yes Family/Social History: No Known Family HX Smoking Status: Never Smoked Hx Alcohol Use: No Hx Substance Use: No Allergies/Home Meds Allergies/Adverse Reactions: Allergies No Known Allergies Allergy (Verified 05/29/17 10:47) Home Medications: Home Meds Medication Instructions Recorded Confirmed Lorazepam [Ativan] 0.5 mg PO HS 01/19/17 05/29/17 Lubiprostone [Amitiza] 8 mcg PO DAILY 01/19/17 05/29/17 Review of Systems - Physician Review All systems were reviewed & negative as marked: Yes - Review of Systems Constitutional: absent: Fevers, Other (Chills) Respiratory: absent: SOB Cardiovascular: absent: Chest Pain Gastrointestinal: absent: Diarrhea, Nausea, Vomiting Musculoskeletal: Other (left rib pain ). absent: Back Pain, Neck Pain Neurological: Dizziness. absent: Headache, Other (LOC) Physical Exam Vital Signs Reviewed: Yes Vital Signs Temp Pulse Resp BP Pulse Ox 05/29/17 13:10 80 18 139/74 98 05/29/17 12:15 88 18 142/86 98 05/29/17 10:45 77 18 109/77 98 05/29/17 10:17 97.2 F L 87 14 92/34 L 98 Temperature: Afebrile Blood Pressure: Normal Pulse: Irregular Respiratory Rate: Normal Appearance: Positive for: Well-Appearing, Non-Toxic, Comfortable, Other (thin) Pain Distress: None Mental Status: Positive for: Alert and Oriented X 3 - Systems Exam Head: Present: Atraumatic, Normocephalic Pupils: Present: PERRL Extroacular Muscles: Present: EOMI Conjunctiva: Present: Normal Mouth: Present: Moist Mucous Membranes Neck: Present: Normal Range of Motion Respiratory/Chest: Present: Clear to Auscultation, Good Air Exchange, Other ( Tender to the left posterior lung area ). No: Respiratory Distress, Accessory Muscle Use Cardiovascular: Present: Regular Rate and Rhythm, Normal S1, S2. No: Murmurs Abdomen: Present: Normal Bowel Sounds. No: Tenderness, Distention, Peritoneal Signs Back: Present: Normal Inspection Upper Extremity: Present: Normal Inspection. No: Cyanosis, Edema Lower Extremity: Present: Normal Inspection. No: Edema Neurological: Present: GCS=15, CN II-XII Intact, Speech Normal Skin: Present: Warm, Dry, Normal Color. No: Rashes Psychiatric: Present: Alert, Oriented x 3, Normal Insight, Normal Concentration Medical Decision Making ED Course and Treatment: 05/29/17 10:45 Impression: 87 year old male presents s/p fall getting out of bed. Patient complaining of left rib area pain. Plan: -- CT head w/o contrast -- EKG -- IV Fluids, Toradol -- Urine Culture, Urinalysis -- Ribs Left & PA chest x-ray -- O2 via Nasal Cannula -- Reassess and disposition Prior Visits: Notes and results from previous visits were reviewed. Patient was last seen in the emergency department on 01/17/17 presents s/p fall off bed. Patient was admitted. Progress Notes: EKG shows A-fib at 99 BPM with LAD, LVH, PVC. Interpreted by me. PROCEDURE: CT HEAD WITHOUT CONTRAST. Dictator : Jonathan Davis MD Report Date : 05/29/2017 11:13:37 IMPRESSION: No acute findings PROCEDURE: Radiographs of the Chest and Left Ribs. Dictator : Jonathan Davis MD Report Date : 05/29/2017 12:37:29 IMPRESSION: Minimally displaced rib fractures are seen laterally involving the 8th 9th and 10th ribs 05/29/17 12:43 Leaving Against Medical Advice (AMA): The patient is choosing to leave against medical advice. I have personally explained to the patient that choosing to do so may result in permanent bodily harm or . I have discussed at great length that without further evaluation and monitoring there may be unforeseen circumstances and/or deterioration causing permanent bodily harm or as a result of their choice. The patient is alert, oriented, and shows the mental capacity to make clear decisions regarding the patients health care at this time. The patient continues to wish to leave against medical advice. In light of the patients decision to leave against medical advice, follow-up has been arranged and the patient is aware of the importance to following up as instructed. The patient has been advised that they should return to the emergency room immediately if they change their mind at any time, or if their condition begins to change or worsen in any way. - Lab Interpretations Lab Results: 05/29/17 11:30 05/29/17 11:30 Lab Results 05/29/17 12:30: Urine Color Yellow, Urine Appearance Clear, Urine pH 7.0, Ur Specific [place] 1.020, Urine Protein 30 H, Urine Glucose (UA) Negative, Urine Ketones Negative, Urine Blood Trace-intact H, Urine Nitrate Negative, Urine Bilirubin Negative, Urine Urobilinogen 0.2, Ur Leukocyte Esterase Negative, Urine RBC 2 - 5, Urine WBC 0 - 2, Ur Epithelial Cells None, Amorphous Sediment Few, Urine Bacteria Many, Coarse Granular Casts Trace H, Urine Other Fiber 05/29/17 11:30: Sodium 143, Potassium 3.9, Chloride 101, Carbon Dioxide 33, Anion Gap 13, BUN 20, Creatinine 0.8, Est GFR ( Amer) > 60, Est GFR (Non- Af Amer) > 60, Random Glucose 98, Calcium 9.9, Magnesium 2.2, Total Bilirubin 0.5, AST 38, ALT 62 H, Alkaline Phosphatase 88, Lactate Dehydrogenase 442, Total Creatine Kinase 42, Troponin I < 0.01 D, Total Protein 7.3, Albumin 4.1, Globulin 3.2, Albumin/Globulin Ratio 1.3 05/29/17 11:30: WBC 11.1 H D, RBC 4.55, Hgb 14.2 D, Hct 44.0, MCV 96.7, MCH 31.2, MCHC 32.3, RDW 12.9, Plt Count 194, MPV 10.6, Gran % 85.5 H, Lymph % (Auto ) 4.5 L, [place] % (Auto) 9.5 H, Eos % (Auto) 0.3 L, Baso % (Auto) 0.2, Gran # 9.51 H, Lymph # (Auto) 0.5 L, [place] # (Auto) 1.1 H, Eos # (Auto) 0.0, Baso # ( Auto) 0.02, Neutrophils % (Manual) 94 H, Band Neutrophils % 0, Lymphocytes % ( Manual) 3 L, Monocytes % (Manual) 3, Toxic Granulation 2+, Platelet Evaluation Normal, Hypochromasia 2+, Rouleaux 2+ I have reviewed the lab results: Yes - RAD Interpretation Radiology Orders: 05/29/17 10:46 RIBS LEFT & PA CHEST [RAD] Stat 05/29/17 10:47 HEAD W/O CONTRAST [CT] Stat - EKG Interpretation Interpreted by ED Physician: Yes Type: 12 lead EKG - Medication Orders Current Medication Orders: Discontinued Medications Sodium Chloride (Sodium Chloride 0.9%) 1,000 mls @ 100 mls/hr IV .Q10H CIARAN Last Admin: 05/29/17 11:20 Dose: 100 mls/hr eMAR Start Stop Document 05/29/17 11:20 SZA (Rec: 05/29/17 11:29 [email or web address] [id number]) Intravenous Solution Start Date 05/29/17 Start Time 11:20 Ketorolac Tromethamine (Toradol) 15 mg IVP STAT STA Stop: 05/29/17 10:48 Last Admin: 05/29/17 11:22 Dose: 15 mg ISHAAN Pain Assessment Document 05/29/17 11:22 SZA (Rec: 05/29/17 11:30 SZA [id number]) Pain Reassessment Is this a pain reassessment? No Sleep Is patient sleeping during reassessment? No Presence of Pain Presence of Pain Yes IVP Administration Document 05/29/17 11:22 SZA (Rec: 05/29/17 11:30 ELIA [id number]) Charges for Administration # of IVP Administrations 1 Re-Assess: ISHAAN Pain Assessment Document 05/29/17 12:22 SZA (Rec: 05/29/17 12:41 SZA [id number]) Pain Reassessment Is this a pain reassessment? Yes Sleep Is patient sleeping during reassessment? No Presence of Pain Presence of Pain Yes Pain Scale Used Pain Scale Used Numeric Description Description Intermittent Intensity of Pain at present 4 - Scribe Statement The provider has reviewed the documentation as recorded by the Chan Arevalo Provider Scribe Attestation: All medical record entries made by the Scribe were at my direction and personally dictated by me. I have reviewed the chart and agree that the record accurately reflects my personal performance of the history, physical exam, medical decision making, and the department course for this patient. I have also personally directed, reviewed, and agree with the discharge instructions and disposition. Disposition/Present on Arrival - Present on Arrival Any Indicators Present on Arrival: No History of DVT/PE: No History of Uncontrolled Diabetes: No Urinary Catheter: No History Surgical Site Infection Following: None - Disposition Have Diagnosis and Disposition been Completed?: Yes Diagnosis: Fall, New onset atrial fibrillation, Rib fracture Disposition: AGAINST MEDICAL ADVICE Disposition Time: 12:30 Condition: GUARDED Discharge Instructions (ExitCare): Rib Fractures in Adults, Atrial Fibrillation Additional Instructions: Thank you for letting us take care of you today. The emergency medical care you received today was directed at your acute symptoms. If you were prescribed any medication, please fill it and take as directed. It may take several days for your symptoms to resolve. Return to the Emergency Department if your symptoms worsen, do not improve, or if you have any other problems. Please contact your doctor or call one of the physicians/clinics you have been referred to that are listed on the Patient Visit Information form that is included in your discharge packet. Bring any paperwork you were given at discharge with you along with any medications you are taking to your follow up visit. Our treatment cannot replace ongoing medical care by a primary care provider (PCP) outside of the emergency department. Thank you for allowing the [facility] team to be part of your care today. Follow up with Dr. oKroma in 1-2 days for follow up. Prescriptions: traMADol [Ultram] 25 mg PO Q6 PRN #15 tab PRN Reason: Pain, Severe (8-10) Referrals: Joe Koroma MD [Staff Provider] - Follow up with primary Forms: [employer] (Mexican)
[2017-05-29] MEDS ORDERED: Sodium Chloride 0.9% 1,000 ML IV SCH (11:00)
--- NOTE | 2017-05-29 11:15 | CT ---
PROCEDURE: CT HEAD WITHOUT CONTRAST. HISTORY: s/p fall r/o ICH COMPARISON: None available. TECHNIQUE: Axial computed tomography images were obtained through the head/brain without intravenous contrast. Radiation dose: Total exam DLP = 929 mGy-cm. This CT exam was performed using one or more of the following dose reduction techniques: Automated exposure control, adjustment of the mA and/or kV according to patient size, and/or use of iterative reconstruction technique. FINDINGS: HEMORRHAGE: No intracranial hemorrhage. BRAIN: No mass effect or edema. No atrophy or chronic microvascular ischemic changes. VENTRICLES: Unremarkable. No hydrocephalus. CALVARIUM: Unremarkable. PARANASAL SINUSES: Unremarkable as visualized. No significant inflammatory changes. MASTOID AIR CELLS: Unremarkable as visualized. No inflammatory changes. OTHER FINDINGS: None. IMPRESSION: No acute findings
[2017-05-29 11:44] LABS: BASO # 0.02 K/mm3 (0.0-2.0); BASO % 0.2 % (0.0-3.0); EOS % 0.3 % (1.5-5.0); GRAN # 9.51 (1.4-6.5); GRAN % 85.5 % (50.0-68.0); HEMOGLOBIN 14.2 g/dL (14.0-18.0); LYMPH # 0.5 (1.2-3.4); LYMPH % 4.5 % (22.0-35.0); MEAN CELL VOLUME 96.7 fl (80.0-105.0); MEAN CORPUSCULAR HEMOGLOBIN 31.2 pg (25.0-35.0); MEAN CORPUSCULAR HGB CONC 32.3 g/dl (31.0-37.0); MEAN PLATELET VOLUME 10.6 fl (7.0-11.0); MONO # 1.1 (0.1-0.6); MONO % 9.5 % (1.0-6.0); PLATELET COUNT 194 10^3/uL (120.0-450.0); RBC 4.55 10^6/uL (3.5-6.1); RED CELL DISTRIBUTION WIDTH 12.9 % (11.5-14.5); WHITE BLOOD COUNT 11.1 10^3/ul (4.5-11.0)
[2017-05-29 11:49] LABS: ALB/GLOB RATIO 1.3 (1.1-1.8); ALBUMIN 4.1 g/dL (3.0-4.8); ALT/SGPT 62 U/L (7-56); AST/SGOT 38 U/L (17-59); BLOOD UREA NITROGEN 20 mg/dL (7-21); CALCIUM 9.9 mg/dL (8.4-10.5); GFR AFRICAN-AMERICAN > 60; GFR NON-AFRICAN AMERICAN > 60; MAGNESIUM 2.2 mg/dL (1.7-2.2)
[2017-05-29 12:00] LABS: TROPONIN I < 0.01 ng/mL
[2017-05-29 12:36] VITALS: RESP 18
--- NOTE | 2017-05-29 12:39 | RAD ---
PROCEDURE: Radiographs of the Chest and Left Ribs. HISTORY: s/p fall r/o fx (tenderness to posterior 7th-9th) COMPARISON: None available. TECHNIQUE: Frontal radiograph of the chest and multiple oblique radiographs of the left ribs were obtained. FINDINGS: LEFT RIBS: Minimally displaced rib fractures are seen laterally involving the 8th 9th and 10th ribs LUNGS: Clear. PLEURA: No pneumothorax or pleural fluid. CARDIOVASCULAR: Normal sized heart. No pulmonary vascular congestion. OTHER FINDINGS: None. IMPRESSION: Minimally displaced rib fractures are seen laterally involving the 8th 9th and 10th ribs
[2017-05-29 12:53] LABS: URINE APPEARANCE CLEAR (CLEAR); URINE BILIRUBIN NEGATIVE (NEGATIVE); URINE BLOOD TRACE-INTACT (NEGATIVE); URINE COLOR YELLOW (YELLOW); URINE GLUCOSE (UA) NEGATIVE (NEGATIVE); URINE LEUKOCYTE ESTERASE NEGATIVE Leu/uL (NEGATIVE); URINE NITRATE NEGATIVE (NEGATIVE); URINE PROTEIN 30 mg/dL (<30 mg/dL); URINE UROBILINOGEN 0.2 E.U./dL (<1 E.U./dL)
[2017-05-29 12:57] LABS: URINE BACTERIA MANY (NEG); URINE WBC 0 - 2 /hpf (0-6)
[2017-05-29 12:58] LABS: URINE AMORPHOUS SEDIMENT FEW; URINE COARSE GRANULAR CAST TRACE /hpf (0-2)
[2017-05-29 13:33] VITALS: BP 139/74; PULSE 80
[2017-05-29 13:33] LABS: BAND 0 % (0-2); LYMPHOCYTE 3 % (22.0-35.0); MONOCYTE 3 % (1.0-6.0); NEUTROPHIL 94 % (50.0-70.0)
[2017-05-29 13:34] LABS: HYPOCHROMIA 2+; PLATELET ESTIMATE NORMAL (NORMAL); ROULEAU 2+; TOXIC GRANULATION 2+
--- NOTE | 2017-05-29 22:50 | CARD ---
APPROVED REPORT EKG Measurement Heart [id number] <Conclusion> Poor data quality, interpretation may be adversely affected Atrial fibrillation with premature ventricular or aberrantly conducted complexes Left axis deviation Minimal voltage criteria for LVH, may be normal variant Nonspecific ST abnormality, probably digitalis effect Abnormal ECG
== END 2017-05-29 13:31 | disposition left against medical advice (07) ==
LOC: ED 10:11
DX: S22.42XA Multiple fractures of ribs, left side, initial encounter for closed fracture (principal); W06.XXXA Fall from bed, initial encounter; I48.91 Unspecified atrial fibrillation; I10 Essential (primary) hypertension
CPT/HCPCS: 70450; 71101; 80053; 81001; 82550; 83615; 83735; 84484; 85025; 87086; 93005; 96374; 99284; J1885; J7040

== ENCOUNTER 2017-06-16 17:18 | Inpatient (IN) | payer MEDICARE ==
[2017-06-16 17:19] VITALS: BMI 19.6
--- NOTE | 2017-06-16 17:33 | ED PDOC ---
Arrival/HPI - General Time Seen by Provider: 06/16/17 17:29 Historian: Patient - History of Present Illness Narrative History of Present Illness (Text): 06/16/17 17:29 87yo male with PMHx of Dementia, hypertension, OA who was bib EMS with the niece by the bedside for generalized body pain s/p trauma. the niece states patient fell while getting up from his commode an hour ago. States she called EMS but patient refused to come to ED. Patient started complaining of generalized body pain and was brought to ED. Patient is a poor historian, unable to localize his pain. He however complain of abdominal pain and right leg pain. the niece states he had been complaining of stomach pain for 3days now and have chronic OA on his knee. She takes care of patient and reports normal appetite, denies nausea, vomiting, diarrhea, constipation, fever, chills , any other complaint. Past Medical History - Provider Review Nursing Documentation Reviewed: Yes - Infectious Disease Hx of Infectious Diseases: None - Tetanus Immunization Tetanus Immunization: Unknown - Cardiac Hx Hypertension: Yes - Pulmonary Hx Respiratory Disorders: No - Neurological Hx Dementia: Yes Hx Paralysis: No - HEENT Hx HEENT Disorder: No (WEARS RX GLASSES) Hx Deafness: Yes (hard of hearing) - Renal Hx Renal Disorder: No - Endocrine/Metabolic Hx Endocrine Disorders: No - Hematological/Oncological Hx Blood Transfusions: No Hx Blood Transfusion Reaction: No - Integumentary Hx Dermatological Disorder: No - Musculoskeletal/Rheumatological Hx Arthritis: Yes (hands and knees) - Gastrointestinal Hx Gastrointestinal Disorders: Yes (constipation) - Genitourinary/Gynecological Hx Genitourinary Disorders: Yes (URINARY FRQUENCY) Hx Prostate Problems: Yes (PROSTATE CA) - Psychiatric Hx Emotional Abuse: No Hx Physical Abuse: No Hx Substance Use: No - Past Surgical History Past Surgical History: Non-Contributing - Surgical History Other/Comment: left femoral fracture - Anesthesia Hx Anesthesia Reactions: No Hx Malignant Hyperthermia: No - Suicidal Assessment Feels Threatened In Home Enviroment: No Family/Social History - Physician Review Nursing Documentation Reviewed: Yes Family/Social History: Unknown Family HX Smoking Status: Never Smoked Hx Alcohol Use: No Hx Substance Use: No Allergies/Home Meds Allergies/Adverse Reactions: Allergies No Known Allergies Allergy (Verified 06/16/17 17:21) Home Medications: Home Meds Medication Instructions Recorded Confirmed Alprazolam [Xanax] 0.5 mg PO HS 06/16/17 06/16/17 Review of Systems - Physician Review All systems were reviewed & negative as marked: Yes - Review of Systems Constitutional: Normal Eyes: Normal ENT: Normal Respiratory: Normal Cardiovascular: Normal Gastrointestinal: Abdominal Pain. absent: Constipation, Diarrhea, Nausea, Vomiting, Hematemesis Genitourinary Male: Normal Musculoskeletal: Arthralgias (Right knee ) Skin: Normal Neurological: Normal Endocrine: Normal Hemo/Lymphatic: Normal Psychiatric: Normal Physical Exam Vital Signs Reviewed: Yes Vital Signs Temp Pulse Resp BP Pulse Ox 06/16/17 20:18 100.6 F H 82 18 176/80 H 97 06/16/17 18:35 76 162/80 H 06/16/17 17:19 98.9 F 82 19 166/87 H 98 Temperature: Afebrile Blood Pressure: Normal Pulse: Regular Respiratory Rate: Normal Appearance: Positive for: Well-Appearing, Non-Toxic, Comfortable Pain Distress: None Mental Status: No: Alert and Oriented X 3 (AAO x2) - Systems Exam Head: Present: Atraumatic, Normocephalic Pupils: Present: PERRL Extroacular Muscles: Present: EOMI Conjunctiva: Present: Normal Mouth: Present: Moist Mucous Membranes Neck: Present: Normal Range of Motion Respiratory/Chest: Present: Clear to Auscultation, Good Air Exchange. No: Respiratory Distress, Accessory Muscle Use Cardiovascular: Present: Regular Rate and Rhythm, Normal S1, S2. No: Murmurs Abdomen: Present: Normal Bowel Sounds, Other (Soft). No: Tenderness, Distention , Peritoneal Signs, Rebound, Guarding, McBurney's Point Tender, Rovsing's Sign Present Back: Present: Normal Inspection Upper Extremity: Present: Normal ROM (Limited on flexion of knee), NORMAL PULSES , Tenderness (Right hip/knee), Swelling (right knee), Neurovascularly Intact. No: Cyanosis, Edema Lower Extremity: Present: Normal Inspection. No: Edema Neurological: Present: GCS=15, CN II-XII Intact, Speech Normal Skin: Present: Warm, Dry, Normal Color. No: Rashes Psychiatric: Present: Alert, Oriented x 3, Normal Insight, Normal Concentration Medical Decision Making ED Course and Treatment: 06/16/17 20:59 87yo male in ED for generalized bodyache s/p trauma. Pt was neurologically intact in ED. Hemodynamically stable in ED. Lab was noted with mild leukocytosis 12.0. Lactic is WNL EKG NSR @80bpm Head CT IMPRESSION: Left frontotemporoparietal extra-axial hemorrhage which likely all represents subdural hemorrhage with the somewhat biconvex shaped area of hemorrhage superficial to the posterolateral left temporal lobe, raising possibility of epidural hemorrhage. Suboptimal evaluation of the skull relating to motion artifact with questionable step-off in the left frontotemporal renan-sylvian region laterally which may be artifact although possibility of fracture is raised. Followup recommend Bed was elevated at 30degree. PT was re evaluated in ED and still remain neurologically intact. He was also hemodynamcially stable. He again complained of abdominal pain and morphine was given. He is not on any anticoagulant. IMPRESSION: 1. Left proximal femoral medullary elier with traversing threaded and extending into the left femoral head with residua of old intertrochanteric fracture. 2. Degenerative joint space narrowing of the left. 3. Sigmoid diverticulosis. 4. No acute fracture. IMPRESSION: 1. Right pelvic kidney with renal calculi. 2. Degenerative changes of the lower lumbar spine with facet arthropathy and slight anterolisthesis of L5 relative to S1. 3. Degenerative joint space narrowing of the right hip. 4. Otherwise negative CT right hip. No fracture. IMPRESSION: 1. Moderate left lower lobe atelectasis with minimal left pleural effusion. There is mild bibasilar atelectasis or scar in the remaining aerated lung. 2. Multiple left rib fractures which appear to be old or healing. 3. Colonic diverticulosis without diverticulitis. 4. Right pelvic kidney with nonobstructing renal calculi. 5. Compression fracture of L1 which appears to contain ribs. The coronal images demonstrate some lateral cortical offset consistent with an acute transverse fracture through the L1 segment. No involvement of the posterior elements is identified. Dr. Quick DC Ct findings with Dr. Chacon, who is covering Dr. Urias. He recommends a repeat Head CT in 4hrs and discharge of pt with normal or unchange Head CT. Case was MERCED Mccoy, Nutrition Assistant and he accepted pt to the unit. Dr. mccoy saw pt in ED . Case was MERCED Prabhakar and pt was admitted to his service CT result and plan was DW pt's niece by the bedside and she expressed understanding and agreed 06/16/17 21:21 - Lab Interpretations Lab Results: 06/16/17 18:20 06/16/17 18:20 Lab Results 06/16/17 20:06: Lactic Acid 1.2 06/16/17 19:15: Urine Color Yellow, Urine Appearance Clear, Urine pH 6.0, Ur Specific [place] >= 1.030, Urine Protein 30 H, Urine Glucose (UA) Negative, Urine Ketones Negative, Urine Blood Trace-intact H, Urine Nitrate Negative, Urine Bilirubin Negative, Urine Urobilinogen 0.2, Ur Leukocyte Esterase Negative , Urine RBC 1 - 3, Urine WBC 0 - 2, Ur Epithelial Cells 0 - 2, Urine Bacteria Few 06/16/17 18:20: Sodium 138, Potassium 4.0, Chloride 104, Carbon Dioxide 25, Anion Gap 13, BUN 27 H, Creatinine 0.7 L, Est GFR ( Amer) > 60, Est GFR ( Non-Af Amer) > 60, Random Glucose 101, Calcium 8.9, Total Bilirubin 0.8, AST 32 , ALT 44, Alkaline Phosphatase 142 H D, Lactate Dehydrogenase 741 H, Total Creatine Kinase 33 L, Troponin I 0.02 D, Total Protein 5.9, Albumin 3.0, Globulin 2.9, Albumin/Globulin Ratio 1.0 L, Amylase < 30 L, Lipase 61 06/16/17 18:20: PT 13.5 H, INR 1.18 H, APTT 24.8 L 06/16/17 18:20: WBC 12.0 H, RBC 3.77, Hgb 11.6 L D, Hct 35.3 L, MCV 93.6 D, MCH 30.8, MCHC 32.9, RDW 12.7, Plt Count 276, MPV 10.4, Gran % 85.6 H, Lymph % ( Auto) 7.0 L, Dawson % (Auto) 7.1 H, Eos % (Auto) 0.2 L, Baso % (Auto) 0.1, Gran # 10.30 H, Lymph # (Auto) 0.8 L, Dawson # (Auto) 0.9 H, Eos # (Auto) 0.0, Baso # ( Auto) 0.01 - RAD Interpretation Radiology Orders: 06/16/17 17:36 HEAD W/O CONTRAST [CT] Stat Hip [CT HIP W/O CONTRAST BILATERAL] [CT] Stat 06/16/17 17:37 ABD & PELVIS IV CONTRAST ONLY [CT] Stat KNEE W PATELLA RIGHT 3 VIEW [RAD] Stat - Medication Orders Current Medication Orders: Discontinued Medications Famotidine (Pepcid) 20 mg IVP STAT STA Stop: 06/16/17 17:35 Last Admin: 06/16/17 18:44 Dose: 20 mg IVP Administration Document 06/16/17 18:44 SF (Rec: 06/16/17 18:44 SF [id number]) Charges for Administration # of IVP Administrations 1 Morphine Sulfate (Morphine) 2 mg IVP STAT STA Stop: 06/16/17 18:43 Last Admin: 06/16/17 18:47 Dose: 2 mg MAR Pain Assessment Document 06/16/17 18:47 SF (Rec: 06/16/17 18:47 SF [id number]) Pain Reassessment Is this a pain reassessment? Yes Sleep Is patient sleeping during reassessment? No Presence of Pain Presence of Pain Yes Pain Scale Used Pain Scale Used Numeric IVP Administration Document 06/16/17 18:47 SF (Rec: 06/16/17 18:47 SF [id number]) Charges for Administration # of IVP Administrations 1 Morphine Sulfate (Morphine) 2 mg IVP STAT STA Stop: 06/16/17 21:00 Disposition/Present on Arrival - Present on Arrival Any Indicators Present on Arrival: No History of DVT/PE: No History of Uncontrolled Diabetes: No Urinary Catheter: No History Surgical Site Infection Following: None - Disposition Have Diagnosis and Disposition been Completed?: Yes Diagnosis: Subdural hemorrhage, Compression fracture of lumbosacral spine, Pleural effusion Disposition: HOSPITALIZED Disposition Time: 20:55 Patient Plan: Admission Patient Problems: Current Active Problems Problem Status Onset Subdural hemorrhage Acute Condition: GUARDED Referrals: Inveni Hoa Hickman, [Primary Care Provider] - Follow up with primary
[2017-06-16] MEDS ORDERED: Morphine 2 mg/ml ISec IVP STA ×2 (18:15→20:59)
[2017-06-16] MEDS ORDERED: Iohexol 350 MG/100 ML VIAL ONE (18:24)
[2017-06-16] MEDS ORDERED: Morphine 4 mg/ml ISec IVP STA (18:42)
[2017-06-16 18:49] LABS: BASO # 0.01 K/mm3 (0.0-2.0); BASO % 0.1 % (0.0-3.0); EOS % 0.2 % (1.5-5.0); GRAN # 10.3 (1.4-6.5); GRAN % 85.6 % (50.0-68.0); HEMOGLOBIN 11.6 g/dL (14.0-18.0); LYMPH # 0.8 (1.2-3.4); MEAN CELL VOLUME 93.6 fl (80.0-105.0); MEAN CORPUSCULAR HEMOGLOBIN 30.8 pg (25.0-35.0); MEAN CORPUSCULAR HGB CONC 32.9 g/dl (31.0-37.0); MEAN PLATELET VOLUME 10.4 fl (7.0-11.0); MONO # 0.9 (0.1-0.6); MONO % 7.1 % (1.0-6.0); RBC 3.77 10^6/uL (3.5-6.1); RED CELL DISTRIBUTION WIDTH 12.7 % (11.5-14.5)
[2017-06-16 18:57] LABS: INR 1.18 (0.93-1.08); PARTIAL THROMBOPLASTIN TIME 24.8 Seconds (25.1-36.5); PROTHROMBIN TIME 13.5 SECONDS (9.4-12.5)
[2017-06-16 18:59] LABS: ALT/SGPT 44 U/L (7-56); AMYLASE < 30 U/L (35-125); AST/SGOT 32 U/L (17-59); BLOOD UREA NITROGEN 27 mg/dL (7-21); CALCIUM 8.9 mg/dL (8.4-10.5); GFR AFRICAN-AMERICAN > 60; GFR NON-AFRICAN AMERICAN > 60; LIPASE 61 U/L (23-300)
[2017-06-16 19:25] LABS: URINE BILIRUBIN NEGATIVE (NEGATIVE); URINE BLOOD TRACE-INTACT (NEGATIVE); URINE GLUCOSE (UA) NEGATIVE (NEGATIVE); URINE LEUKOCYTE ESTERASE NEGATIVE Leu/uL (NEGATIVE); URINE PROTEIN 30 mg/dL (<30 mg/dL); URINE UROBILINOGEN 0.2 E.U./dL (<1 E.U./dL)
[2017-06-16 19:26] LABS: URINE APPEARANCE CLEAR (CLEAR); URINE COLOR YELLOW (YELLOW)
[2017-06-16 19:30] LABS: URINE BACTERIA FEW (NEG); URINE EPITHELIAL CELLS 0 - 2 /hpf (0-5); URINE WBC 0 - 2 /hpf (0-6)
[2017-06-16 20:22] LABS: TROPONIN I 0.02 ng/mL
[2017-06-16] MEDS ORDERED: HYDROmorphone 0.5 mg/0.5 ml ISec SC PRN (21:34)
[2017-06-16] MEDS ORDERED: HYDROmorphone 0.5 mg/0.5 ml ISec IVP ONE (21:35)
[2017-06-16] MEDS: Sodium Chloride 0.9% 1,000 ML IV SCH (21:58)
[2017-06-16] MEDS ORDERED: Azithromycin 500MG/NS 250ml 500 MG/250 ML BAG IVPB ONE (22:15)
[2017-06-16] MEDS ORDERED: cefTRIAXone 1 gm 1 GM/100 ML BAG IVPB ONE (22:15)
--- NOTE | 2017-06-16 22:20 | CP.PCM.CON ---
<Negin Chambers - Last Filed: 06/16/17 22:16> History of Present Illness - History of Present Illness History of Present Illness: PGY-2 ICU Consult note 87 yo male with PMH of Dementia, hypertension, OA who was presents with the niece by the bedside for generalized body pain s/p trauma. The niece states patient fell while getting up from his commode. She states that he did not loss consciousness and talking to her. EMS was called but patient refused to come to ED. Per niece patient started complaining of generalized body pain and was brought to ED. Patient is a poor historian, localize his pain to right knee and abdomen. The niece states he had been complaining of stomach pain for 3 days now and have chronic OA on his knee, however his right knee began to swell yesterday. 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 She states that he has normal appetite, denies nausea , vomiting, diarrhea, constipation, fever, chills, any other complaint. Niece reports that patient had a fall earlier this month which resulted in broken ribs, she states that he has an unsteady gait due to pain from OA of right knee. PMH: dementia, HTN, OA PSH: left hip repair social history: former cigar smoker, denies alcohol use, illicit drug use family history: heart disease allergy: NKDA home meds: norvasc, ultram prn, xanax Review of Systems - Review of Systems Systems not reviewed;Unavailable: Dementia Past Patient History - Infectious Disease Hx of Infectious Diseases: None - Tetanus Immunizations Tetanus Immunization: Unknown - Past Social History Smoking Status: Never Smoked - CARDIAC Hx Hypertension: Yes - PULMONARY Hx Respiratory Disorders: No - NEUROLOGICAL Hx Dementia: Yes Hx Paralysis: No - HEENT Hx HEENT Problems: No (WEARS RX GLASSES) Hx Deafness: Yes (hard of hearing) - RENAL Hx Chronic Kidney Disease: No - ENDOCRINE/METABOLIC Hx Endocrine Disorders: No - HEMATOLOGICAL/ONCOLOGICAL Hx Blood Transfusions: No Hx Blood Transfusion Reaction: No - INTEGUMENTARY Hx Dermatological Problems: No - MUSCULOSKELETAL/RHEUMATOLOGICAL Hx Arthritis: Yes (hands and knees) - GASTROINTESTINAL Hx Gastrointestinal Disorders: Yes (constipation) - GENITOURINARY/GYNECOLOGICAL Hx Genitourinary Disorders: Yes (URINARY FRQUENCY) Hx Prostate Problems: Yes (PROSTATE CA) - PSYCHIATRIC Hx Emotional Abuse: No Hx Physical Abuse: No Hx Substance Use: No - SURGICAL HISTORY Other/Comment: left femoral fracture - ANESTHESIA Hx Anesthesia Reactions: No Hx Malignant Hyperthermia: No Meds Allergies/Adverse Reactions: Allergies Allergy/AdvReac Type Severity Reaction Status Date / Time No Known Allergies Allergy Verified 06/16/17 17:21 - Medications Medications: Current Medications Alprazolam (Xanax) 0.5 mg PO HS [facility] PRN Reason: Protocol Amlodipine Besylate (Norvasc) 5 mg PO DAILY [facility] Haloperidol Lactate (Haldol) 1 mg IVP Q6 [facility] PRN Reason: Protocol Hydralazine HCl (Apresoline) 10 mg IVP Q6 PRN PRN Reason: Systolic Blood Pressure Hydromorphone HCl (Dilaudid) 0.5 mg SC Q4H PRN PRN Reason: Pain, severe (8-10) Acetaminophen (Ofirmev) 1,000 mg in 100 mls @ 400 mls/hr IVPB Q6H PRN PRN Reason: Temperature >100.4 Stop: 06/18/17 21:35 Sodium Chloride (Sodium Chloride 0.9%) 1,000 mls @ 75 mls/hr IV .[id number] [facility] Last Admin: 06/16/17 21:58 Dose: 75 mls/hr Ceftriaxone Sodium (Rocephin 1 Gram Ivpb) 1 gm in 100 mls @ 100 mls/hr IVPB DAILY [facility] PRN Reason: Protocol Azithromycin (Zithromax 500mg In Ns) 500 mg in 250 mls @ 167 mls/hr IVPB DAILY [facility] PRN Reason: Protocol Ceftriaxone Sodium (Rocephin 1 Gram Ivpb) 1 gm in 100 mls @ 100 mls/hr IVPB ONCE ONE PRN Reason: Protocol Stop: 06/16/17 23:14 Azithromycin (Zithromax 500mg In Ns) 500 mg in 250 mls @ 167 mls/hr IVPB STAT ONE PRN Reason: Protocol Stop: 06/16/17 23:44 Physical Exam - Constitutional Appears: No Acute Distress, Confused - Head Exam Head Exam: NORMAL INSPECTION, NORMOCEPHALIC - Eye Exam Eye Exam: EOMI, Normal appearance, PERRL - ENT Exam ENT Exam: Mucous Membranes Moist - Respiratory Exam Respiratory Exam: Clear to Auscultation Bilateral, NORMAL BREATHING PATTERN. absent: Rhonchi, Wheezes - Cardiovascular Exam Cardiovascular Exam: REGULAR RHYTHM, +S1, +S2. absent: Tachycardia, Diastolic murmur, Systolic Murmur - GI/Abdominal Exam GI & Abdominal Exam: Normal Bowel Sounds, Soft. absent: Distended, Firm, Guarding, Tenderness - Extremities Exam Extremities exam: Negative for: pedal edema Additional comments: right knee tender, swollen - Neurological Exam Neurological exam: Alert - Expanded Neurological Exam Expanded Patient oriented to: person Cranial nerves: EOM's Intact: Normal Neuro motor strength exam: Left Upper Extremity: 5, Right Upper Extremity: 5, Left Lower Extremity: 5, Right Lower Extremity: 5 Coma Scale Eye Opening: SPONTANEOUS Coma Scale Motor Response: OBEYS COMMANDS Coma Scale Verbal: Confused Coma Scale Total: 14 - Skin Skin Exam: Dry, Intact, Normal Color, Warm Results - Vital Signs Recent Vital Signs: Last Vital Signs Temp 98.9 F 06/16/17 21:59 Pulse 77 06/16/17 21:59 Resp 17 06/16/17 21:59 BP 124/69 06/16/17 21:59 Pulse Ox 98 06/16/17 21:59 - Labs Result Diagrams: 06/16/17 18:20 06/16/17 18:20 Labs: Laboratory Results - last 24 hr 06/16/17 06/16/17 06/16/17 18:20 18:20 18:20 WBC 12.0 H RBC 3.77 Hgb 11.6 L D Hct 35.3 L MCV 93.6 D MCH 30.8 MCHC 32.9 RDW 12.7 Plt Count 276 MPV 10.4 Gran % 85.6 H Lymph % (Auto) 7.0 L Stanley % (Auto) 7.1 H Eos % (Auto) 0.2 L Baso % (Auto) 0.1 Gran # 10.30 H Lymph # (Auto) 0.8 L Stanley # (Auto) 0.9 H Eos # (Auto) 0.0 Baso # (Auto) 0.01 PT 13.5 H INR 1.18 H APTT 24.8 L Sodium 138 Potassium 4.0 Chloride 104 Carbon Dioxide 25 Anion Gap 13 BUN 27 H Creatinine 0.7 L Est GFR ( Amer) > 60 Est GFR (Non-Af Amer) > 60 Random Glucose 101 Lactic Acid Calcium 8.9 Total Bilirubin 0.8 AST 32 ALT 44 Alkaline Phosphatase 142 H D Lactate Dehydrogenase 741 H Total Creatine Kinase 33 L Troponin I 0.02 D Total Protein 5.9 Albumin 3.0 Globulin 2.9 Albumin/Globulin Ratio 1.0 L Amylase < 30 L Lipase 61 Urine Color Urine Appearance Urine pH Ur Specific [place] Urine Protein Urine Glucose (UA) Urine Ketones Urine Blood Urine Nitrate Urine Bilirubin Urine Urobilinogen Ur Leukocyte Esterase Urine RBC Urine WBC Ur Epithelial Cells Urine Bacteria 06/16/17 06/16/17 19:15 20:06 WBC RBC Hgb Hct MCV MCH MCHC RDW Plt Count MPV Gran % Lymph % (Auto) Stanley % (Auto) Eos % (Auto) Baso % (Auto) Gran # Lymph # (Auto) Stanley # (Auto) Eos # (Auto) Baso # (Auto) PT INR APTT Sodium Potassium Chloride Carbon Dioxide Anion Gap BUN Creatinine Est GFR ( Amer) Est GFR (Non-Af Amer) Random Glucose Lactic Acid 1.2 Calcium Total Bilirubin AST ALT Alkaline Phosphatase Lactate Dehydrogenase Total Creatine Kinase Troponin I Total Protein Albumin Globulin Albumin/Globulin Ratio Amylase Lipase Urine Color Yellow Urine Appearance Clear Urine pH 6.0 Ur Specific [place] >= 1.030 Urine Protein 30 H Urine Glucose (UA) Negative Urine Ketones Negative Urine Blood Trace-intact H Urine Nitrate Negative Urine Bilirubin Negative Urine Urobilinogen 0.2 Ur Leukocyte Esterase Negative Urine RBC 1 - 3 Urine WBC 0 - 2 Ur Epithelial Cells 0 - 2 Urine Bacteria Few Assessment & Plan - Assessment and Plan (Free Text) Assessment: 87 yo male with PMH of Dementia, hypertension, OA who was presents with the niece by the bedside for generalized body pain s/p fall found to have subdural hematoma, and possibel PNA. Plan: 1. subdural hemtoma - CT head- Left frontotemporoparietal extra-axial hemorrhage likely subdural hemorrhage Suboptimal evaluation of the skull relating to motion artifact with questionable step-off in the left frontotemporal renan-sylvian region laterally which may be artifact although possibility of fracture - currently patient is axox1 to person, per niece at baseline - neurochecks q1h - seizure precaution - high fall precaution - avoid anticoagualtion - control BP - Neurosurgery consulted - neurology consulted 2. s/p fall - right knee pain, xray- pending - hip CT Degenerative joint space narrowing of the left No acute fracture. Degenerative changes of the lower lumbar spine with facet arthropathy and slight anterolisthesis of L5 relative to S1.3. Degenerative joint space narrowing of the right hip. - fall precaution - pain control, Dilaudid 0.5 q6h 3. PNA - febrile with leukocytosis - start ceftriaxone and azithromycin - procal ordered - blood cultures pending - IV acetaminophen prn for fever >100.4 - IVF NS @75cc 4. abd pain - CT abd- Moderate left lower lobe atelectasis with minimal left pleural effusion. multiple left rib fractures which appear to be old or healing. Compression fracture of L1 which appears to contain ribs - protonix 5. HTN - norvasc daily - maintain SBP< 165 - hydralazine 10 iv prn ppx GI- protonix DVT- SCDs <Chao Mccoy MD - Last Filed: 06/17/17 06:12> Meds - Medications Medications: Current Medications Amlodipine Besylate (Norvasc) 5 mg PO DAILY [facility] Haloperidol Lactate (Haldol) 1 mg IVP Q6 PRN; Protocol PRN Reason: Agitation Last Admin: 06/17/17 05:11 Dose: 1 mg Hydralazine HCl (Apresoline) 10 mg IVP Q6 PRN PRN Reason: Systolic Blood Pressure Last Admin: 06/17/17 00:27 Dose: 10 mg Hydromorphone HCl (Dilaudid) 0.5 mg SC Q4H PRN PRN Reason: Pain, severe (8-10) Acetaminophen (Ofirmev) 1,000 mg in 100 mls @ 400 mls/hr IVPB Q6H PRN PRN Reason: Temperature >100.4 Stop: 06/18/17 21:35 Sodium Chloride (Sodium Chloride 0.9%) 1,000 mls @ 75 mls/hr IV .[id number] [facility] Last Admin: 06/16/17 21:58 Dose: 75 mls/hr Ceftriaxone Sodium (Rocephin 1 Gram Ivpb) 1 gm in 100 mls @ 100 mls/hr IVPB DAILY [facility] PRN Reason: Protocol Azithromycin (Zithromax 500mg In Ns) 500 mg in 250 mls @ 167 mls/hr IVPB DAILY [facility] PRN Reason: Protocol Pantoprazole Sodium (Protonix Inj) 40 mg IVP DAILY [facility] Results - Vital Signs Recent Vital Signs: Last Vital Signs Temp 98.2 F 06/16/17 22:32 Pulse 93 H 06/17/17 02:20 Resp 34 H 06/17/17 02:20 BP 172/102 H 06/17/17 00:27 Pulse Ox 94 L 06/17/17 02:20 - Labs Result Diagrams: 06/17/17 05:00 06/17/17 05:00 Labs: Laboratory Results - last 24 hr 06/17/17 06/17/17 05:00 05:00 WBC 11.3 H RBC 3.50 Hgb 10.7 L Hct 32.5 L MCV 92.9 MCH 30.6 MCHC 32.9 RDW 12.7 Plt Count 230 MPV 9.6 Gran % 83.2 H Lymph % (Auto) 8.8 L Stanley % (Auto) 7.7 H Eos % (Auto) 0.1 L Baso % (Auto) 0.2 Gran # 9.37 H Lymph # (Auto) 1.0 L Stanley # (Auto) 0.9 H Eos # (Auto) 0.0 Baso # (Auto) 0.02 Sodium 137 Potassium 3.4 L Chloride 106 Carbon Dioxide 25 Anion Gap 10 BUN 22 H Creatinine 0.7 L Est GFR ( Amer) > 60 Est GFR (Non-Af Amer) > 60 Random Glucose 95 Calcium 8.6 Total Bilirubin 0.7 AST 33 ALT 40 Alkaline Phosphatase 129 H Total Protein 6.1 Albumin 2.9 L Globulin 3.2 Albumin/Globulin Ratio 0.9 L Attending/Attestation - Attestation I have personally seen and examined this patient.: Yes I have fully participated in the care of the patient.: Yes I have reviewed all pertinent clinical information: Yes Notes (Text): -I agree with the above ICU consult note completed by the resident physician with the following additions and/or changes: -The patient is an 87 year old man with a history of dementia, OA, HTN and TIA who suffered a ground level fall at home and was subsequently brought into the ED by his niece (VIOLETA) due to generalized body aches. CT-head is suspicious for a small left fronto-parietal subdural hematoma. The patient has a normal neurological exam (aside from baseline dementia). Neurosurgery was made aware of the case and they recommend a repeat CT-head in the morning. As a result, the patient will be observed overnight in the ICU with hourly neuro checks and fall precautions. Of note, CT-A/P done in the ED incidentally shows a left lower lobe infiltrate (versus atelectasis) and the patient spiked a temp of 100.6. Therefore, empiric IV Ceftriaxone and Azithromycin will be started. 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 Critical Care Time Spent: 90-120minutes
[2017-06-17 05:19] LABS: BASO # 0.02 K/mm3 (0.0-2.0); BASO % 0.2 % (0.0-3.0); EOS % 0.1 % (1.5-5.0); GRAN # 9.37 (1.4-6.5); GRAN % 83.2 % (50.0-68.0); HEMOGLOBIN 10.7 g/dL (14.0-18.0); LYMPH % 8.8 % (22.0-35.0); MEAN CELL VOLUME 92.9 fl (80.0-105.0); MEAN CORPUSCULAR HEMOGLOBIN 30.6 pg (25.0-35.0); MEAN CORPUSCULAR HGB CONC 32.9 g/dl (31.0-37.0); MEAN PLATELET VOLUME 9.6 fl (7.0-11.0); MONO # 0.9 (0.1-0.6); MONO % 7.7 % (1.0-6.0); RBC 3.5 10^6/uL (3.5-6.1); RED CELL DISTRIBUTION WIDTH 12.7 % (11.5-14.5); WHITE BLOOD COUNT 11.3 10^3/ul (4.5-11.0)
[2017-06-17 05:32] LABS: ALB/GLOB RATIO 0.9 (1.1-1.8); ALBUMIN 2.9 g/dL (3.0-4.8); ALT/SGPT 40 U/L (7-56); AST/SGOT 33 U/L (17-59); BLOOD UREA NITROGEN 22 mg/dL (7-21); CALCIUM 8.6 mg/dL (8.4-10.5); GFR AFRICAN-AMERICAN > 60; GFR NON-AFRICAN AMERICAN > 60
--- NOTE | 2017-06-17 08:33 | RAD ---
HISTORY: evaluate for infiltrate and/or congestion COMPARISON: No prior. FINDINGS: LUNGS: Interval opacity at the left base may indicate atelectasis though infiltrate is not excluded. PLEURA: Small pleural effusion is noted. None is seen the right. CARDIOVASCULAR: Stable cardiomegaly. No pulmonary vascular derangement. No pneumothorax OSSEOUS STRUCTURES: No significant abnormalities. VISUALIZED UPPER ABDOMEN: Normal. OTHER FINDINGS: None. IMPRESSION: Left pleural effusion minimally apparent. Retrocardiac atelectasis is favored over infiltrate. Clinically correlate further. Remaining lung cornelius clear. Cardiomegaly stable.
[2017-06-17] MEDS: cefTRIAXone 1 gm 1 GM/100 ML BAG IVPB SCH (09:11)
[2017-06-17] MEDS: Azithromycin 500MG/NS 250ml 500 MG/250 ML BAG IVPB SCH (09:12)
--- NOTE | 2017-06-17 09:33 | RAD ---
PROCEDURE: Right Knee Radiographs. HISTORY: knee pain COMPARISON: None. FINDINGS: BONES: There is advanced osteopenia suggesting severe osteoporosis. Clinically correlate. This can limit identification of nondisplaced fractures. No definitive displaced fractures identified and there is no destructive bony lesion evident. JOINTS: Advanced osteoarthritis appreciate with joint space narrowing, cortical sclerosis and osteophyte development identified in all 3 compartments. No subluxation or dislocation. JOINT EFFUSION: A large suprapatellar bursa effusions identified with some density which may indicate hemarthrosis. OTHER FINDINGS: None. IMPRESSION: Prominent bursitis, potential hemarthrosis, at the suprapatellar bursa which is rather distended. No displaced fracture, dislocation or destructive bony lesion identified. Advanced osteoarthritis. Follow-up MRI or CT may be useful for additional characterization.
--- NOTE | 2017-06-17 09:34 | CT ---
PROCEDURE: CT HEAD WITHOUT CONTRAST. HISTORY: subdural hematoma COMPARISON: Unenhanced head CT 06/16/2017 TECHNIQUE: Axial computed tomography images were obtained through the head/brain without intravenous contrast. Radiation dose: Total exam DLP = 817.32 mGy-cm. This CT exam was performed using one or more of the following dose reduction techniques: Automated exposure control, adjustment of the mA and/or kV according to patient size, and/or use of iterative reconstruction technique. FINDINGS: HEMORRHAGE: Stable small extra-axial hemorrhage is appreciated at the left cerebral convexity including a small subdural or epidural hemorrhage with a somewhat lentiform collection at the posterior left lateral frontal region measuring 2.4 x 0.5 cm and a 2nd collection which is similar in appearance but slightly larger more inferiorly measuring 2.7 x 0.7 cm, unchanged in overall volume in the interval. Thin subdural hemorrhage is appreciated cyst with both of these findings anteriorly as well as posteriorly, though all hemorrhage light is likely contiguous. No fracture identified. Motion artifacts degrade the quality of the exam. BRAIN: Good corticomedullary differentiation is seen once again with mild diffuse cerebral atrophy chronic microangiopathy reiterated. Chronic lacune is are again suggested at the upper right basal ganglia and the midline brain anatomy appears grossly nonfocal as imaged. There is no mass effect throughout. VENTRICLES: Unremarkable. No hydrocephalus. CALVARIUM: No destructive bony lesion or displaced fracture identified including through the skullbase. PARANASAL SINUSES: Unremarkable as visualized. No significant inflammatory changes. MASTOID AIR CELLS: Unremarkable as visualized. No inflammatory changes. OTHER FINDINGS: None. IMPRESSION: Stable left cerebral convexity extra-axial hemorrhage representing either small subdural or epidural hematoma. No significant mass effect or new interval finding. Reiterated age related neuro degenerative change. Continued clinical and CT follow-up are advised.
--- NOTE | 2017-06-17 10:26 | CT ---
PROCEDURE: CT HEAD WITHOUT CONTRAST. HISTORY: s/p trauma COMPARISON: Unenhanced head CT 05/29/2017. TECHNIQUE: Axial computed tomography images were obtained through the head/brain without intravenous contrast. Radiation dose: Total exam DLP = 1135.16 mGy-cm. This CT exam was performed using one or more of the following dose reduction techniques: Automated exposure control, adjustment of the mA and/or kV according to patient size, and/or use of iterative reconstruction technique. FINDINGS: HEMORRHAGE: A minimal likely subdural hemorrhage is appreciated at the left frontotemporal distribution with 2 lentiform shapes which could reflect epidural components. The more inferior measures 2.6 x 0.7 cm in the more superior measures 2.8 x 0.5 cm. These are likely connected by a thin hyperdensity representing subdural hematoma bridging both sites. No significant mass effect. BRAIN: Good corticomedullary differentiation is seen. Diffuse expansion of the ventriculosulcal and cisternal spaces is appreciated with minimal white matter lucency compatible with diffuse cerebral atrophy and chronic microangiopathy. A chronic lacune is seen lateral to the right caudate head. No suspicious extra-axial fluid collection is identified and the midline brain anatomy appears grossly nonfocal as imaged. There is no mass effect throughout.No atrophy or chronic microvascular ischemic changes. VENTRICLES: Unremarkable. No hydrocephalus. CALVARIUM: Normal white-white matter differentiation and density are appreciated throughout the cerebrum and cerebellum with the brainstem appearing unremarkable as well. There is no mass effect. There is no suspicious extra-axial fluid collection and the midline brain anatomy appears diffusely unremarkable. PARANASAL SINUSES: Multifocal ethmoid sinusitis is identified. MASTOID AIR CELLS: Unremarkable as visualized. No inflammatory changes. OTHER FINDINGS: None. IMPRESSION: A small left frontotemporal epidural hematoma is appreciated with minimal involvement of the anterior parietal extra-axial space as well. No related fracture identified and there is no significant mass effect. Clinical and CT follow-up are advised. Concordant preliminary report from [facility], 06/16/2017 8:01 p.m..
--- NOTE | 2017-06-17 10:42 | CP.CCUPN ---
<Cesario Darden - Last Filed: 06/17/17 10:39> CCU Subjective - Physician Review Subjective (Free Text): Patient seen and evaluated bedside. Patient says he is feeling okay, no acute issues overnight. Patient denies chest pain, shortness of breath, headaches, fever, chills or any other complaints at this time. 06/17/17 10:39 CCU Objective - Vital Signs / Intake & Output Vital Signs (Last 4 hours): Vital Signs Pulse Resp BP Pulse Ox 06/17/17 09:10 82 144/99 H 06/17/17 07:00 79 24 93 L 06/17/17 06:50 77 14 95 06/17/17 06:40 80 21 94 L Intake and Output (Last 8hrs): Intake & Output 06/16/17 06/17/17 06/17/17 22:59 06:59 14:59 Intake Total 1025 Output Total 300 Balance 725 Weight 119 lb Intake: IV 1025 Left Forearm 1025 Output: Urine 300 Urine, Voided 300 Other: # Voids Urine, Voided 3 - Physical Exam Head: Positive for: Atraumatic, Normocephalic Pupils: Positive for: PERRL Extroacular Muscles: Positive for: EOMI Conjunctiva: Positive for: Normal Mouth: Positive for: Moist Mucous Membranes Respiratory/Chest: Positive for: Clear to Auscultation, Good Air Exchange. Negative for: Respiratory Distress, Accessory Muscle Use Cardiovascular: Positive for: Regular Rate and Rhythm, Normal S1, S2. Negative for: Murmurs Abdomen: Positive for: Normal Bowel Sounds, Other (Soft). Negative for: Tenderness, Distention, Peritoneal Signs, Rebound, Guarding, McBurney's Point Tender, Rovsing's Sign Present Back: Positive for: Normal Inspection Upper Extremity: Positive for: Normal ROM (Limited on flexion of knee), NORMAL PULSES, Tenderness (Right hip/knee), Swelling (right knee). Negative for: Cyanosis, Edema Lower Extremity: Positive for: Normal Inspection. Negative for: Edema Neurological: Positive for: GCS=15, CN II-XII Intact, Speech Normal Skin: Positive for: Warm, Dry, Normal Color. Negative for: Rashes Psychiatric: Positive for: Alert, Oriented x 3, Normal Insight, Normal Concentration - Medications Active Medications: Active Medications Generic Name Dose Route Start Last Admin Trade Name Freq PRN Reason Stop Dose Admin Amlodipine Besylate 5 mg 06/17/17 10:00 06/17/17 09:10 Norvasc PO 5 mg DAILY CIARAN Administration Haloperidol Lactate 1 mg 06/16/17 23:43 06/17/17 05:11 Haldol IVP 1 mg Q6 PRN Administration Agitation Protocol Hydralazine HCl 10 mg 06/16/17 21:34 06/17/17 00:27 Apresoline IVP 10 mg Q6 PRN Administration Systolic Blood Pressure Hydromorphone HCl 0.5 mg 06/16/17 21:34 06/17/17 07:52 Dilaudid SC 0.5 mg Q4H PRN Administration Pain, severe (8-10) Acetaminophen 1,000 mg in 100 mls @ 400 mls/hr 06/16/17 21:34 Ofirmev IVPB 06/18/17 21:35 Q6H PRN Temperature >100.4 Sodium Chloride 1,000 mls @ 75 mls/hr 06/16/17 21:45 06/16/17 21:58 Sodium Chloride 0.9% IV 75 mls/hr .[id number] CIARAN Administration Ceftriaxone Sodium 1 gm in 100 mls @ 100 mls/hr 06/17/17 10:00 06/17/17 09:11 Rocephin 1 Gram Ivpb IVPB 100 mls/hr DAILY CIARAN Administration Protocol Azithromycin 500 mg in 250 mls @ 167 mls/hr 06/17/17 10:00 06/17/17 09:12 Zithromax 500mg In Ns IVPB 167 mls/hr DAILY CIARAN Administration Protocol Mupirocin 0 gm 06/17/17 18:00 Bactroban Ointment TOP BID CIARAN Pantoprazole Sodium 40 mg 06/17/17 10:00 06/17/17 09:10 Protonix Inj IVP 40 mg DAILY CIARAN Administration - Patient Studies Lab Studies: Lab Studies 06/17/17 06/17/17 Range/Units 05:00 05:00 WBC 11.3 H (4.5-11.0) 10^3/ul RBC 3.50 (3.5-6.1) 10^6/uL Hgb 10.7 L (14.0-18.0) g/dL Hct 32.5 L (42.0-52.0) % MCV 92.9 (80.0-105.0) fl MCH 30.6 (25.0-35.0) pg MCHC 32.9 (31.0-37.0) g/dl RDW 12.7 (11.5-14.5) % Plt Count 230 (120.0-450.0) 10^3/uL MPV 9.6 (7.0-11.0) fl Gran % 83.2 H (50.0-68.0) % Lymph % (Auto) 8.8 L (22.0-35.0) % [place] % (Auto) 7.7 H (1.0-6.0) % Eos % (Auto) 0.1 L (1.5-5.0) % Baso % (Auto) 0.2 (0.0-3.0) % Gran # 9.37 H (1.4-6.5) Lymph # (Auto) 1.0 L (1.2-3.4) [place] # (Auto) 0.9 H (0.1-0.6) Eos # (Auto) 0.0 (0.0-0.7) Baso # (Auto) 0.02 (0.0-2.0) K/mm3 Sodium 137 (132-148) mmol/L Potassium 3.4 L (3.6-5.0) mmol/L Chloride 106 (98-107) mmol/L Carbon Dioxide 25 (21-33) mmol/L Anion Gap 10 (10-20) BUN 22 H (7-21) mg/dL Creatinine 0.7 L (0.8-1.5) mg/dl Est GFR ( Amer) > 60 Est GFR (Non-Af Amer) > 60 Random Glucose 95 (70-110) mg/dL Calcium 8.6 (8.4-10.5) mg/dL Total Bilirubin 0.7 (0.2-1.3) mg/dL AST 33 (17-59) U/L ALT 40 (7-56) U/L Alkaline Phosphatase 129 H (38-126) U/L Total Protein 6.1 (5.8-8.3) g/dL Albumin 2.9 L (3.0-4.8) g/dL Globulin 3.2 gm/dL Albumin/Globulin Ratio 0.9 L (1.1-1.8) Laboratory Results - last 24 hr 06/17/17 06/17/17 05:00 05:00 WBC 11.3 H RBC 3.50 Hgb 10.7 L Hct 32.5 L MCV 92.9 MCH 30.6 MCHC 32.9 RDW 12.7 Plt Count 230 MPV 9.6 Gran % 83.2 H Lymph % (Auto) 8.8 L [place] % (Auto) 7.7 H Eos % (Auto) 0.1 L Baso % (Auto) 0.2 Gran # 9.37 H Lymph # (Auto) 1.0 L [place] # (Auto) 0.9 H Eos # (Auto) 0.0 Baso # (Auto) 0.02 Sodium 137 Potassium 3.4 L Chloride 106 Carbon Dioxide 25 Anion Gap 10 BUN 22 H Creatinine 0.7 L Est GFR ( Amer) > 60 Est GFR (Non-Af Amer) > 60 Random Glucose 95 Calcium 8.6 Total Bilirubin 0.7 AST 33 ALT 40 Alkaline Phosphatase 129 H Total Protein 6.1 Albumin 2.9 L Globulin 3.2 Albumin/Globulin Ratio 0.9 L Review of Systems - Cardiovascular Cardiovascular: absent: Chest Pain, Dyspnea, Dyspnea on Exertion - Respiratory Respiratory: absent: Cough, Dyspnea, Dyspnea on Exertion, Wheezing - Gastrointestinal Gastrointestinal: absent: Abdominal Pain, Constipation, Diarrhea, Nausea, Vomiting - Genitourinary Genitourinary: absent: Change in Urinary Stream, Difficulty Urinating - Musculoskeletal Additional comments: right knee pain - Neurological Neurological: absent: Dizziness, Numbness, Focal Weakness, Headaches, Tingling Assessment/Plan - Assessment and Plan (Free Text) Assessment: 87 yo male with PMH of Dementia, hypertension, OA who was presents with the niece by the bedside for generalized body pain s/p fall found to have subdural hematoma, and possible PNA. Patient being monitored in ICU, currently stable no focal deficits. Plan: 1. subdural hemtoma - CT head intial: Left frontotemporoparietal extra-axial hemorrhage likely subdural hemorrhage Suboptimal evaluation of the skull relating to motion artifact with questionable step-off in the left frontotemporal renan-sylvian region laterally which may be artifact although possibility of fracture -Repeat CT from AM: Stable left cerebral convexity extra-axial hemorrhage representing either small subdural or epidural hematoma. No significant mass effect or new interval finding. Reiterated age related neuro degenerative change. Continued clinical and CT follow-up are advised. - currently patient is axox1 to person, per niece at baseline - neurochecks q1h - seizure precaution - high fall precaution - avoid anticoagualtion - control BP - Neurosurgery consulted, Adonay, follow recs - neurology consulted, Wen, follow recs 2. s/p fall - right knee pain, xray:Prominent bursitis, potential hemarthrosis, at the suprapatellar bursa which is rather distended. No displaced fracture, dislocation or destructive bony lesion identified. Advanced osteoarthritis. Follow-up MRI or CT may be useful for additional characterization. - ortho consulted, follow recs - hip CT Degenerative joint space narrowing of the left No acute fracture. Degenerative changes of the lower lumbar spine with facet arthropathy and slight anterolisthesis of L5 relative to S1.3. Degenerative joint space narrowing of the right hip. - fall precautions - pain control, Dilaudid 0.5 q6h 3. PNA - febrile with leukocytosis - ceftriaxone and azithromycin - procal pending - blood cultures pending - IV acetaminophen prn for fever >100.4 - IVF NS @75cc 4. abd pain - CT abd- Moderate left lower lobe atelectasis with minimal left pleural effusion. multiple left rib fractures which appear to be old or healing. Compression fracture of L1 which appears to contain ribs - protonix 5. HTN - norvasc daily - maintain SBP< 165 - hydralazine 10 iv prn ppx GI- protonix DVT- SCDs <Clarence Anne - Last Filed: 06/17/17 11:02> CCU Objective - Vital Signs / Intake & Output Vital Signs (Last 4 hours): Vital Signs Pulse BP 06/17/17 09:10 82 144/99 H Intake and Output (Last 8hrs): Intake & Output 06/16/17 06/17/17 06/17/17 22:59 06:59 14:59 Intake Total 1025 Output Total 300 Balance 725 Weight 119 lb Intake: IV 1025 Left Forearm 1025 Output: Urine 300 Urine, Voided 300 Other: # Voids Urine, Voided 3 - Medications Active Medications: Active Medications Generic Name Dose Route Start Last Admin Trade Name Freq PRN Reason Stop Dose Admin Amlodipine Besylate 5 mg 06/17/17 10:00 06/17/17 09:10 Norvasc PO 5 mg DAILY CIARAN Administration Haloperidol Lactate 1 mg 06/16/17 23:43 06/17/17 05:11 Haldol IVP 1 mg Q6 PRN Administration Agitation Protocol Hydralazine HCl 10 mg 06/16/17 21:34 06/17/17 00:27 Apresoline IVP 10 mg Q6 PRN Administration Systolic Blood Pressure Hydromorphone HCl 0.5 mg 06/17/17 10:46 Dilaudid IVP Q4H PRN Pain, severe (8-10) Acetaminophen 1,000 mg in 100 mls @ 400 mls/hr 06/16/17 21:34 Ofirmev IVPB 06/18/17 21:35 Q6H PRN Temperature >100.4 Sodium Chloride 1,000 mls @ 75 mls/hr 06/16/17 21:45 06/16/17 21:58 Sodium Chloride 0.9% IV 75 mls/hr .[id number] CIARAN Administration Ceftriaxone Sodium 1 gm in 100 mls @ 100 mls/hr 06/17/17 10:00 06/17/17 09:11 Rocephin 1 Gram Ivpb IVPB 100 mls/hr DAILY CIARAN Administration Protocol Azithromycin 500 mg in 250 mls @ 167 mls/hr 06/17/17 10:00 06/17/17 09:12 Zithromax 500mg In Ns IVPB 167 mls/hr DAILY CIARAN Administration Protocol Mupirocin 0 gm 06/17/17 18:00 Bactroban Ointment TOP BID CIARAN Pantoprazole Sodium 40 mg 06/17/17 10:00 06/17/17 09:10 Protonix Inj IVP 40 mg DAILY CIARAN Administration - Patient Studies Lab Studies: Lab Studies 06/17/17 06/17/17 Range/Units 05:00 05:00 WBC 11.3 H (4.5-11.0) 10^3/ul RBC 3.50 (3.5-6.1) 10^6/uL Hgb 10.7 L (14.0-18.0) g/dL Hct 32.5 L (42.0-52.0) % MCV 92.9 (80.0-105.0) fl MCH 30.6 (25.0-35.0) pg MCHC 32.9 (31.0-37.0) g/dl RDW 12.7 (11.5-14.5) % Plt Count 230 (120.0-450.0) 10^3/uL MPV 9.6 (7.0-11.0) fl Gran % 83.2 H (50.0-68.0) % Lymph % (Auto) 8.8 L (22.0-35.0) % [place] % (Auto) 7.7 H (1.0-6.0) % Eos % (Auto) 0.1 L (1.5-5.0) % Baso % (Auto) 0.2 (0.0-3.0) % Gran # 9.37 H (1.4-6.5) Lymph # (Auto) 1.0 L (1.2-3.4) [place] # (Auto) 0.9 H (0.1-0.6) Eos # (Auto) 0.0 (0.0-0.7) Baso # (Auto) 0.02 (0.0-2.0) K/mm3 Sodium 137 (132-148) mmol/L Potassium 3.4 L (3.6-5.0) mmol/L Chloride 106 (98-107) mmol/L Carbon Dioxide 25 (21-33) mmol/L Anion Gap 10 (10-20) BUN 22 H (7-21) mg/dL Creatinine 0.7 L (0.8-1.5) mg/dl Est GFR ( Amer) > 60 Est GFR (Non-Af Amer) > 60 Random Glucose 95 (70-110) mg/dL Calcium 8.6 (8.4-10.5) mg/dL Total Bilirubin 0.7 (0.2-1.3) mg/dL AST 33 (17-59) U/L ALT 40 (7-56) U/L Alkaline Phosphatase 129 H (38-126) U/L Total Protein 6.1 (5.8-8.3) g/dL Albumin 2.9 L (3.0-4.8) g/dL Globulin 3.2 gm/dL Albumin/Globulin Ratio 0.9 L (1.1-1.8) Laboratory Results - last 24 hr 06/17/17 06/17/17 05:00 05:00 WBC 11.3 H RBC 3.50 Hgb 10.7 L Hct 32.5 L MCV 92.9 MCH 30.6 MCHC 32.9 RDW 12.7 Plt Count 230 MPV 9.6 Gran % 83.2 H Lymph % (Auto) 8.8 L [place] % (Auto) 7.7 H Eos % (Auto) 0.1 L Baso % (Auto) 0.2 Gran # 9.37 H Lymph # (Auto) 1.0 L [place] # (Auto) 0.9 H Eos # (Auto) 0.0 Baso # (Auto) 0.02 Sodium 137 Potassium 3.4 L Chloride 106 Carbon Dioxide 25 Anion Gap 10 BUN 22 H Creatinine 0.7 L Est GFR ( Amer) > 60 Est GFR (Non-Af Amer) > 60 Random Glucose 95 Calcium 8.6 Total Bilirubin 0.7 AST 33 ALT 40 Alkaline Phosphatase 129 H Total Protein 6.1 Albumin 2.9 L Globulin 3.2 Albumin/Globulin Ratio 0.9 L Assessment/Plan - Assessment and Plan (Free Text) Plan: Patient seen and examined, on rounds with resident, agree with note with following additions/exceptions: Patient is 87yo male with PMH of Dementia, hypertension, OA who was presents with subdural hematoma, and PNA. Currently afebrile, HD stable, comfortable in NAD, no focal deficits. Cont with neuro checks q1hr, follow up cultures, Abx to cover CAP, follow up neurology, Neurosurgery, BP control DNR/DNI, monitor in MICU
--- NOTE | 2017-06-17 10:52 | CT ---
PROCEDURE: LEFT HIP CT WITHOUT CONTRAST HISTORY: right hip pain s/p trauma COMPARISON: Bilateral hips with pelvis 01/18/2016. TECHNIQUE: Serial axial CT sections were acquired through the left hip joint with reformatted datasets provided in sagittal axial and coronal planes. Intravenous contrast was not administered as per referring physician request. Contrast Dose: None Radiation dose:Total exam DLP = 309.98 mGy-cm. This CT exam was performed using one or more of the following dose reduction techniques: Automated exposure control, adjustment of the mA and/or kV according to patient size, and/or use of iterative reconstruction technique. FINDINGS: Patient is seen to be status was left ORIF for a proximal left femoral fracture by an intramedullary nail with proximal and distal interlocking components. No acute fractures identified throughout the left femur as imaged as well as the pelvic ring as imaged and the right hip joint. No subluxation or dislocation bilaterally. Degenerative sacroiliac and hip joint changes are identified. Chronic avulsion fracture left lesser trochanter is again apparent. No acute pelvic soft tissue findings are identified with extensive visualized aortic iliofemoral atherosclerotic changes appreciated. No destructive bony lesion. Urinary bladder is unremarkable appearing unremarkable and moderate prostate gland enlargement is noted. IMPRESSION: Status was left femoral ORIF appearing stable with chronic ununited avulsion fracture of the lesser trochanter again evident. Fixation hardware is unchanged in deployment and there is no left hip dislocation. degenerative changes are identified as discussed above. Concordant preliminary report from [facility], 06/16/2017.
--- NOTE | 2017-06-17 11:12 | CT ---
PROCEDURE: CT Abdomen and Pelvis with contrast HISTORY: abdominal pain COMPARISON: Contrast abdomen pelvis CT 05/31/2014. TECHNIQUE: Contrast dose: Omnipaque 300, 100 cc. Radiation dose: Total exam DLP = 329.38 mGy-cm. This CT exam was performed using one or more of the following dose reduction techniques: Automated exposure control, adjustment of the mA and/or kV according to patient size, and/or use of iterative reconstruction technique. FINDINGS: LOWER THORAX: Fractures of the left 8th 9th and 10th ribs are identified with a comminuted left 6th rib fracture not only laterally but also anteriorly. There is a likely related mild left pleural effusion exerting compression atelectasis at the left lower lobe. Motion artifact distorts fine imaging of the lung bases. Mild cardiomegaly noted. No pericardial effusion or right pleural effusion. LIVER: No pericardial effusion or right pleural effusion. GALLBLADDER AND BILE DUCTS: The gallbladder is collapsed with no radiodense cholelithiasis in the lumen. PANCREAS: An atrophic pancreas identified however the pancreatitis is dilated up to 3.3 mm without defined mass appreciable. SPLEEN: Unremarkable. ADRENALS: Unremarkable. No mass. KIDNEYS AND URETERS: Punctate intrarenal calculi are again identify in the lower pole right kidney with none on the left. A small cyst is seen at the lower pole left kidney once again now measuring 2.1 cm greatest dimension, marginally larger in the interval. No obstructive uropathy bilaterally. VASCULATURE: Aerated iliofemoral atherosclerosis appreciate without aneurysm formation. BOWEL: Moderate fecal loading is seen throughout the majority colon without bowel obstruction evident. The stomach is collapsed and poorly evaluated. APPENDIX: Appendix not identified. PERITONEUM: No hemoperitoneum identified or other ascites. No free air. LYMPH NODES: Unremarkable. No enlarged lymph nodes. BLADDER: Unremarkable. REPRODUCTIVE: Mild prostate gland enlargement. BONES: A nonaggressive lucent defect is identified at the left iliac bone, unchanged in the interval. A limited fracture to L1 is not excluded. OTHER FINDINGS: None. IMPRESSION: 1. No acute intra-abdominal or pelvic findings. 2. A limited fracture of L1 is suspected. Clinically correlate with this level as lucency is appreciate which is not seen the prior CT from 06/16/2017 could reflect a lytic process. 3. Incidental left pleural effusion which is felt be posttraumatic with multiple left-sided rib fractures identified at the inferior left hemithorax. Please see discussion above. 4. Other lesser abdominal and pelvic findings as discussed above.
[2017-06-17] MEDS: Sodium Chloride 0.9% 1,000 ML IV SCH (12:55)
[2017-06-17] MEDS: HYDROmorphone 0.5 mg/0.5 ml ISec IVP PRN (17:17)
--- NOTE | 2017-06-17 20:50 | CON ---
DATE: HISTORY OF PRESENT ILLNESS: A 87-year-old male seen in CCU at the request of his niece for foot evaluation. The patient fell yesterday and sustained a subdural hematoma. He also injured his right third toe and presents with a partially avulsed nail on that digit. PAST MEDICAL HISTORY: The patient's medical history is significant for essential hypertension, osteoarthritis and advanced dementia. ALLERIGES: THE PATIENT HAS NO KNOWN DRUG ALLERGIES. CURRENT MEDICATIONS: Include Ultram as p.r.n., Xanax and Norvasc. PAST SURGICAL HISTORY: Includes left hip surgery. SOCIAL HISTORY: The patient lives with family, was a former heavy cigar smoker. No illicit drug use. No alcohol abuse. FAMILY HISTORY: Remarkable for heart disease. PHYSICAL EXAMINATION VITAL SIGNS: Reveal temperature of 98.2, pulse rate of 82, respiratory rate of 24, O2 saturation of 93%. EXTREMITIES: Nonpalpable pedal pulses noted bilaterally. Absent pedal hair growth noted bilaterally. Lower extremity skin presents thin, shining, discolored bilaterally. Capillary filling time is delayed x10. The patient does not detect 5.07 g monofilament wire testing bilaterally. The right third digit presents with a traumatically avulsed nail plate. There is coagulated blood at the nail base. There are no signs of purulence. The area is void of any edema or erythema. There are no signs of acute bacterial infection. LABORATORY DATA: Findings reveal white count of 11.3, hemoglobin of 10.7, hematocrit of 32.5, platelet count of 230,000. ASSESSMENT: Partially avulsed right third digit toenail with no infection noted. PLAN: The patient's feet were examined. Excisional debridement was performed on all nail plates. We will apply Bactroban and a dry sterile dressing to the right third toe once daily. Colin Flaherty DPM
--- NOTE | 2017-06-17 21:12 | HP ---
HISTORY OF PRESENT ILLNESS: I was called by the ER to see this young man. He apparently was brought in by EMS. He fell while getting up from his commode; I was in hour before he got to the Emergency Room, he refused to come to the Emergency Room, it took a while. He had generalized body pain and came to the Emergency Room. He is a poor historian. Complaining of stomach pain for three days, chronic osteoarthritis of the knee. He has a past medical history of dementia, hypertension, osteoarthritis. He is an 87-year-old male with a fall, hypertension, he has dementia history. He is hard of hearing, arthritis of the knees and hands. He has got constipation issues, urinary frequency, prostate cancer history, left femoral fracture history. FAMILY HISTORY: Unknown. SOCIAL HISTORY: Never smoked. No alcohol. No drugs. ALLERGIES: NO KNOWN DRUG ALLERGIES. MEDICATIONS: He takes Xanax at home. REVIEW OF SYSTEMS: He is alert, comfortable, no pain at this time. No acute vision or hearing changes. No shortness of breath or cough. No palpitations or chest pain. Does have some abdominal pain. No constipation, diarrhea, nausea, vomiting. No problems urinating. He has arthritis of the right knee and also showed that on the x-ray. Skin is warm and dry, normal. No skin rash is appreciative. He is comfortable, calm. No anxiety or depression at this time and not anxious. Not sweating. PHYSICAL EXAMINATION VITAL SIGNS: He has a 100.6 temperature, 82 pulse, 18 respiratory rate, 176/80 blood pressure, 97% O2 saturation on room air. GENERAL: He is well appearing, alert, mildly confused. HEENT: Head is atraumatic, normocephalic. Extraocular muscles are intact. Pupils are equal and reactive to light. Throat is moist. NECK: Supple. Normal range of motion. HEART: Regular rate. Normal S1, S2. LUNGS: Clear to auscultation bilaterally. ABDOMEN: Soft, nontender. Positive bowel sounds. No guarding, no rebound, no CVA tenderness. EXTREMITIES: He has got limited flexion of the knees, he has got arthritis of the right knee, mild swelling if any. No edema of the ankles. NEUROLOGICAL: GCS is 15. Cranial nerves II through XII grossly intact. Normal speech. SKIN: Warm and dry. No apparent rashes or ulcers appreciated. Alert and oriented x3 at this time, he understands it is going on. He comes in with a fall. He had multiple tests. He had a CAT scan of his head, which showed small left frontal temporal epidural hematoma as appreciated with minimal involvement of the anterior parietal extra-axial space as well. No related fracture identified. He has a hip CT and abdominopelvic CT which were pending. He had an x-ray of the knee, which showed prominent bursitis, potential hemarthrosis at the suprapatellar bursa, advanced osteoarthritis, which is kind of new, he had a consult through Intensive Care Unit. He had subdural hematoma, status post fall; possible pneumonia; febrile leukocytosis, will be on ceftriaxone, azithromycin. He had abdominal pain, hypertension. He had a repeat head CT the next day which showed stable left cerebral convexity, extra-axial hemorrhage representing either small subdural or epidural hematoma. No mass effect and he had a chest x-ray which showed left pleural effusion, atelectasis or infiltrate. We will continue with aggressive treatment and care. He is on Tylenol, Apresoline, Bactroban, Dilaudid, Haldol, morphine, Norvasc, Pepcid, potassium replacement, Protonix, Rocephin, azithromycin. He has consults for Neurology and Neurosurgery. Check his labs tomorrow. Get physical therapy involved. He might need to go to subacute rehab versus TCU. We will continue with aggressive treatment and care of Mr. Noé Erickson who had a fall with subdural hematoma. eJf Prabhakar DO
--- NOTE | 2017-06-17 23:14 | CON ---
DATE: HISTORY OF PRESENT ILLNESS: This is an 87-year-old white male with past medical history of hypertension, arthritis, dementia, and patient fell while getting up from the commode and hit his head, did not lose consciousness. Head CAT scan shows temporoparietal hematoma and called to evaluate the patient. Patient also complained of abdominal pain and right leg pain, and patient is hard of hearing, and past medical history of arthritis, hypertension, and dementia. ALLERGIES: NO KNOWN DRUG ALLERGY. HOME MEDICATION: Alprazolam. REVIEW OF SYSTEMS: Ten-point review of systems was negative. PHYSICAL EXAMINATION: VITAL SIGNS: Blood pressure 166/87. HEENT: Normocephalic, atraumatic. NECK: Supple. NEUROLOGIC: Alert, awake, and oriented to self, hard of hearing. No aphasia. Cranial nerves II through XII are tested. Pupils reactive. No facial asymmetry. Tongue midline. Motor examination, spontaneous movement of the extremities noted. Deep tendon reflexes 1+. Both plantars are downgoing. Sensory appears intact. Cerebellar, gait deferred. PLAN: Continue with present management. We will follow. Matthew Carver MD
--- NOTE | 2017-06-17 23:35 | CARD ---
APPROVED REPORT EKG Measurement Heart [id number] <Conclusion> Normal sinus rhythm Minimal voltage criteria for LVH, may be normal variant Junctional ST depression, probably normal Borderline ECG
[2017-06-18] MEDS: Sodium Chloride 0.9% 1,000 ML IV SCH (01:39)
[2017-06-18 05:25] LABS: BASO # 0.02 K/mm3 (0.0-2.0); BASO % 0.2 % (0.0-3.0); EOS % 0.3 % (1.5-5.0); GRAN # 8.82 (1.4-6.5); GRAN % 81.7 % (50.0-68.0); HEMOGLOBIN 10.2 g/dL (14.0-18.0); LYMPH # 1.1 (1.2-3.4); LYMPH % 9.8 % (22.0-35.0); MEAN CELL VOLUME 92.9 fl (80.0-105.0); MEAN CORPUSCULAR HGB CONC 32.3 g/dl (31.0-37.0); MEAN PLATELET VOLUME 9.8 fl (7.0-11.0); MONO # 0.9 (0.1-0.6); RBC 3.4 10^6/uL (3.5-6.1); RED CELL DISTRIBUTION WIDTH 12.7 % (11.5-14.5); WHITE BLOOD COUNT 10.8 10^3/ul (4.5-11.0)
[2017-06-18 05:34] LABS: ALB/GLOB RATIO 0.9 (1.1-1.8); ALBUMIN 2.7 g/dL (3.0-4.8); ALT/SGPT 39 U/L (7-56); AST/SGOT 30 U/L (17-59); BLOOD UREA NITROGEN 22 mg/dL (7-21); CALCIUM 8.4 mg/dL (8.4-10.5); GFR AFRICAN-AMERICAN > 60; GFR NON-AFRICAN AMERICAN > 60
[2017-06-18] MEDS ORDERED: Potassium Chloride 20 mEq ER Tab PO ONE (06:10)
[2017-06-18] MEDS: HYDROmorphone 0.5 mg/0.5 ml ISec IVP PRN ×3 (06:17→22:43)
[2017-06-18] MEDS: Azithromycin 500MG/NS 250ml 500 MG/250 ML BAG IVPB SCH (09:10)
[2017-06-18] MEDS: cefTRIAXone 1 gm 1 GM/100 ML BAG IVPB SCH (09:14)
[2017-06-18] MEDS: Pantoprazole 40 mg EC Tab PO SCH (09:24)
--- NOTE | 2017-06-18 09:33 | CP.CCUPN ---
<Cesario Darden - Last Filed: 06/18/17 09:30> CCU Subjective - Physician Review Subjective (Free Text): Patient seen and evaluated bedside. Patient says he is feeling well. No acute issues overnight. Patient denies chest pain, shortness of breath, headaches, fever, chills or any other complaints at this time. 06/18/17 09:32 CCU Objective - Vital Signs / Intake & Output Vital Signs (Last 4 hours): Vital Signs Pulse BP 06/18/17 09:08 84 154/88 H Intake and Output (Last 8hrs): Intake & Output 06/17/17 06/18/17 06/18/17 22:59 06:59 14:59 Intake Total 1400 Output Total 750 Balance 650 Intake: IV 600 Left Forearm 600 Oral 800 Output: Urine 750 Urine, Voided 750 Other: # Bowel Movements 0 - Physical Exam Head: Positive for: Atraumatic, Normocephalic Pupils: Positive for: PERRL Extroacular Muscles: Positive for: EOMI Conjunctiva: Positive for: Normal Mouth: Positive for: Moist Mucous Membranes Neck: Positive for: Normal Range of Motion Respiratory/Chest: Positive for: Clear to Auscultation, Good Air Exchange. Negative for: Respiratory Distress, Accessory Muscle Use Cardiovascular: Positive for: Regular Rate and Rhythm, Normal S1, S2. Negative for: Murmurs Abdomen: Positive for: Normal Bowel Sounds, Other. Negative for: Tenderness, Distention, Peritoneal Signs, Rebound, Guarding, McBurney's Point Tender, Rovsing's Sign Present Back: Positive for: Normal Inspection Upper Extremity: Negative for: Cyanosis, Edema Lower Extremity: Positive for: Normal Inspection, NORMAL PULSES, Tenderness. Negative for: Edema Neurological: Positive for: GCS=15, CN II-XII Intact, Speech Normal Skin: Positive for: Warm, Dry, Normal Color. Negative for: Rashes Psychiatric: Positive for: Alert, Oriented x 3, Normal Insight, Normal Concentration - Medications Active Medications: Active Medications Generic Name Dose Route Start Last Admin Trade Name Freq PRN Reason Stop Dose Admin Amlodipine Besylate 5 mg 06/17/17 10:00 06/18/17 09:08 Norvasc PO 5 mg DAILY CIARAN Administration Haloperidol Lactate 1 mg 06/16/17 23:43 06/17/17 05:11 Haldol IVP 1 mg Q6 PRN Administration Agitation Protocol Hydralazine HCl 10 mg 06/16/17 21:34 06/17/17 00:27 Apresoline IVP 10 mg Q6 PRN Administration Systolic Blood Pressure Hydromorphone HCl 0.5 mg 06/17/17 10:46 06/18/17 06:17 Dilaudid IVP 0.5 mg Q4H PRN Administration Pain, severe (8-10) Acetaminophen 1,000 mg in 100 mls @ 400 mls/hr 06/16/17 21:34 Ofirmev IVPB 06/18/17 21:35 Q6H PRN Temperature >100.4 Sodium Chloride 1,000 mls @ 75 mls/hr 06/16/17 21:45 06/18/17 01:39 Sodium Chloride 0.9% IV 75 mls/hr .[id number] CIARAN Administration Ceftriaxone Sodium 1 gm in 100 mls @ 100 mls/hr 06/17/17 10:00 06/18/17 09:14 Rocephin 1 Gram Ivpb IVPB 100 mls/hr DAILY CIARAN Administration Protocol Azithromycin 500 mg in 250 mls @ 167 mls/hr 06/17/17 10:00 06/18/17 09:10 Zithromax 500mg In Ns IVPB 167 mls/hr DAILY CIARAN Administration Protocol Potassium Chloride 10 meq in 100 mls @ 50 mls/hr 06/18/17 06:15 06/18/17 09: 02 Potassium Chloride 10 Meq/100 Ml IVPB 06/18/17 10:14 50 mls/hr Q2H CIARAN Administration Mupirocin 0 gm 06/17/17 18:00 06/17/17 17:07 Bactroban Ointment TOP 1 oin BID CIARAN Administration Pantoprazole Sodium 40 mg 06/18/17 06:00 06/18/17 09:24 Protonix Ec Tab PO 40 mg 0600 CIARAN Administration - Patient Studies Lab Studies: Lab Studies 06/18/17 06/18/17 06/17/17 Range/Units 05:00 05:00 21:38 WBC 10.8 (4.5-11.0) 10^3/ul RBC 3.40 L (3.5-6.1) 10^6/uL Hgb 10.2 L (14.0-18.0) g/dL Hct 31.6 L (42.0-52.0) % MCV 92.9 (80.0-105.0) fl MCH 30.0 (25.0-35.0) pg MCHC 32.3 (31.0-37.0) g/dl RDW 12.7 (11.5-14.5) % Plt Count 233 (120.0-450.0) 10^3/uL MPV 9.8 (7.0-11.0) fl Gran % 81.7 H (50.0-68.0) % Lymph % (Auto) 9.8 L (22.0-35.0) % [place] % (Auto) 8.0 H (1.0-6.0) % Eos % (Auto) 0.3 L (1.5-5.0) % Baso % (Auto) 0.2 (0.0-3.0) % Gran # 8.82 H (1.4-6.5) Lymph # (Auto) 1.1 L (1.2-3.4) [place] # (Auto) 0.9 H (0.1-0.6) Eos # (Auto) 0.0 (0.0-0.7) Baso # (Auto) 0.02 (0.0-2.0) K/mm3 Sodium 140 (132-148) mmol/L Potassium 3.5 L (3.6-5.0) mmol/L Chloride 108 H (98-107) mmol/L Carbon Dioxide 26 (21-33) mmol/L Anion Gap 10 (10-20) BUN 22 H (7-21) mg/dL Creatinine 0.7 L (0.8-1.5) mg/dl Est GFR ( Amer) > 60 Est GFR (Non-Af Amer) > 60 POC Glucose (mg/dL) 101 (65-110) mg/dL Random Glucose 92 (70-110) mg/dL Calcium 8.4 (8.4-10.5) mg/dL Total Bilirubin 0.7 (0.2-1.3) mg/dL AST 30 (17-59) U/L ALT 39 (7-56) U/L Alkaline Phosphatase 109 (38-126) U/L Total Protein 5.7 L (5.8-8.3) g/dL Albumin 2.7 L (3.0-4.8) g/dL Globulin 3.0 gm/dL Albumin/Globulin Ratio 0.9 L (1.1-1.8) Procalcitonin (0.19-0.49) NG/ML 06/17/17 Range/Units 05:00 WBC (4.5-11.0) 10^3/ul RBC (3.5-6.1) 10^6/uL Hgb (14.0-18.0) g/dL Hct (42.0-52.0) % MCV (80.0-105.0) fl MCH (25.0-35.0) pg MCHC (31.0-37.0) g/dl RDW (11.5-14.5) % Plt Count (120.0-450.0) 10^3/uL MPV (7.0-11.0) fl Gran % (50.0-68.0) % Lymph % (Auto) (22.0-35.0) % [place] % (Auto) (1.0-6.0) % Eos % (Auto) (1.5-5.0) % Baso % (Auto) (0.0-3.0) % Gran # (1.4-6.5) Lymph # (Auto) (1.2-3.4) [place] # (Auto) (0.1-0.6) Eos # (Auto) (0.0-0.7) Baso # (Auto) (0.0-2.0) K/mm3 Sodium (132-148) mmol/L Potassium (3.6-5.0) mmol/L Chloride (98-107) mmol/L Carbon Dioxide (21-33) mmol/L Anion Gap (10-20) BUN (7-21) mg/dL Creatinine (0.8-1.5) mg/dl Est GFR ( Amer) Est GFR (Non-Af Amer) POC Glucose (mg/dL) (65-110) mg/dL Random Glucose (70-110) mg/dL Calcium (8.4-10.5) mg/dL Total Bilirubin (0.2-1.3) mg/dL AST (17-59) U/L ALT (7-56) U/L Alkaline Phosphatase (38-126) U/L Total Protein (5.8-8.3) g/dL Albumin (3.0-4.8) g/dL Globulin gm/dL Albumin/Globulin Ratio (1.1-1.8) Procalcitonin 0.13 L (0.19-0.49) NG/ML Laboratory Results - last 24 hr 06/17/17 06/17/17 06/18/17 05:00 21:38 05:00 WBC 10.8 RBC 3.40 L Hgb 10.2 L Hct 31.6 L MCV 92.9 MCH 30.0 MCHC 32.3 RDW 12.7 Plt Count 233 MPV 9.8 Gran % 81.7 H Lymph % (Auto) 9.8 L [place] % (Auto) 8.0 H Eos % (Auto) 0.3 L Baso % (Auto) 0.2 Gran # 8.82 H Lymph # (Auto) 1.1 L [place] # (Auto) 0.9 H Eos # (Auto) 0.0 Baso # (Auto) 0.02 Sodium Potassium Chloride Carbon Dioxide Anion Gap BUN Creatinine Est GFR ( Amer) Est GFR (Non-Af Amer) POC Glucose (mg/dL) 101 Random Glucose Calcium Total Bilirubin AST ALT Alkaline Phosphatase Total Protein Albumin Globulin Albumin/Globulin Ratio Procalcitonin 0.13 L 06/18/17 05:00 WBC RBC Hgb Hct MCV MCH MCHC RDW Plt Count MPV Gran % Lymph % (Auto) [place] % (Auto) Eos % (Auto) Baso % (Auto) Gran # Lymph # (Auto) [place] # (Auto) Eos # (Auto) Baso # (Auto) Sodium 140 Potassium 3.5 L Chloride 108 H Carbon Dioxide 26 Anion Gap 10 BUN 22 H Creatinine 0.7 L Est GFR ( Amer) > 60 Est GFR (Non-Af Amer) > 60 POC Glucose (mg/dL) Random Glucose 92 Calcium 8.4 Total Bilirubin 0.7 AST 30 ALT 39 Alkaline Phosphatase 109 Total Protein 5.7 L Albumin 2.7 L Globulin 3.0 Albumin/Globulin Ratio 0.9 L Procalcitonin Review of Systems - Cardiovascular Cardiovascular: absent: Chest Pain, Dyspnea - Respiratory Respiratory: absent: Cough, Dyspnea, Wheezing - Gastrointestinal Gastrointestinal: absent: Abdominal Pain, Nausea, Vomiting Critical Care Progress Note - Nutrition Nutrition: Nutrition Category Date Time Status Heart Healthy Diet [DIET] Diets 06/17/17 Dinner Ordered Assessment/Plan - Assessment and Plan (Free Text) Assessment: 87 yo male with PMH of Dementia, hypertension, OA who was presents with the niece by the bedside for generalized body pain s/p fall found to have subdural hematoma, and possible PNA. No focal deficits. Patient will be transferred to remote telemetry. Plan: 1. subdural hemtoma - CT head intial: Left frontotemporoparietal extra-axial hemorrhage likely subdural hemorrhage Suboptimal evaluation of the skull relating to motion artifact with questionable step-off in the left frontotemporal renan-sylvian region laterally which may be artifact although possibility of fracture -Repeat CT from AM: Stable left cerebral convexity extra-axial hemorrhage representing either small subdural or epidural hematoma. No significant mass effect or new interval finding. Reiterated age related neuro degenerative change. Continued clinical and CT follow-up are advised. - currently patient is AAOx3 - neurochecks q1h - seizure precaution - high fall precaution - avoid anticoagualtion - control BP - Neurosurgery consulted, Adonay, follow recs - neurology consulted, Wen, follow recs 2. s/p fall - right knee pain, xray:Prominent bursitis, potential hemarthrosis, at the suprapatellar bursa which is rather distended. No displaced fracture, dislocation or destructive bony lesion identified. Advanced osteoarthritis. Follow-up MRI or CT may be useful for additional characterization. - ortho consulted, follow recs - hip CT Degenerative joint space narrowing of the left No acute fracture. Degenerative changes of the lower lumbar spine with facet arthropathy and slight anterolisthesis of L5 relative to S1.3. Degenerative joint space narrowing of the right hip. - fall precautions - pain control, Dilaudid 0.5 q6h 3. PNA - afebrile, lekocytosis improved - ceftriaxone and azithromycin - blood cultures pending - IV acetaminophen prn for fever >100.4 4. abd pain - CT abd- Moderate left lower lobe atelectasis with minimal left pleural effusion. multiple left rib fractures which appear to be old or healing. Compression fracture of L1 which appears to contain ribs - protonix 5. HTN - norvasc daily - maintain SBP< 165 - hydralazine 10 iv prn ppx GI- protonix DVT- SCDs Dispo: remote telemetry <Clarence Anne - Last Filed: 06/18/17 10:43> CCU Objective - Vital Signs / Intake & Output Vital Signs (Last 4 hours): Vital Signs Pulse BP 06/18/17 09:08 84 154/88 H Intake and Output (Last 8hrs): Intake & Output 06/17/17 06/18/17 06/18/17 22:59 06:59 14:59 Intake Total 1400 Output Total 750 Balance 650 Intake: IV 600 Left Forearm 600 Oral 800 Output: Urine 750 Urine, Voided 750 Other: # Bowel Movements 0 - Medications Active Medications: Active Medications Generic Name Dose Route Start Last Admin Trade Name Freq PRN Reason Stop Dose Admin Amlodipine Besylate 5 mg 06/17/17 10:00 06/18/17 09:08 Norvasc PO 5 mg DAILY CIARAN Administration Docusate Sodium 100 mg 06/18/17 10:30 Colace PO DAILY CIARAN Haloperidol Lactate 1 mg 06/16/17 23:43 06/17/17 05:11 Haldol IVP 1 mg Q6 PRN Administration Agitation Protocol Hydralazine HCl 10 mg 06/16/17 21:34 06/17/17 00:27 Apresoline IVP 10 mg Q6 PRN Administration Systolic Blood Pressure Hydromorphone HCl 0.5 mg 06/17/17 10:46 06/18/17 06:17 Dilaudid IVP 0.5 mg Q4H PRN Administration Pain, severe (8-10) Acetaminophen 1,000 mg in 100 mls @ 400 mls/hr 06/16/17 21:34 Ofirmev IVPB 06/18/17 21:35 Q6H PRN Temperature >100.4 Sodium Chloride 1,000 mls @ 75 mls/hr 06/16/17 21:45 06/18/17 01:39 Sodium Chloride 0.9% IV 75 mls/hr .[id number] CIARAN Administration Ceftriaxone Sodium 1 gm in 100 mls @ 100 mls/hr 06/17/17 10:00 06/18/17 09:14 Rocephin 1 Gram Ivpb IVPB 100 mls/hr DAILY CIARAN Administration Protocol Azithromycin 500 mg in 250 mls @ 167 mls/hr 06/17/17 10:00 06/18/17 09:10 Zithromax 500mg In Ns IVPB 167 mls/hr DAILY CIARAN Administration Protocol Mupirocin 0 gm 06/17/17 18:00 06/17/17 17:07 Bactroban Ointment TOP 1 oin BID CIARAN Administration Pantoprazole Sodium 40 mg 06/18/17 06:00 06/18/17 09:24 Protonix Ec Tab PO 40 mg 0600 CIARAN Administration - Patient Studies Lab Studies: Lab Studies 06/18/17 06/18/17 06/17/17 Range/Units 05:00 05:00 21:38 WBC 10.8 (4.5-11.0) 10^3/ul RBC 3.40 L (3.5-6.1) 10^6/uL Hgb 10.2 L (14.0-18.0) g/dL Hct 31.6 L (42.0-52.0) % MCV 92.9 (80.0-105.0) fl MCH 30.0 (25.0-35.0) pg MCHC 32.3 (31.0-37.0) g/dl RDW 12.7 (11.5-14.5) % Plt Count 233 (120.0-450.0) 10^3/uL MPV 9.8 (7.0-11.0) fl Gran % 81.7 H (50.0-68.0) % Lymph % (Auto) 9.8 L (22.0-35.0) % [place] % (Auto) 8.0 H (1.0-6.0) % Eos % (Auto) 0.3 L (1.5-5.0) % Baso % (Auto) 0.2 (0.0-3.0) % Gran # 8.82 H (1.4-6.5) Lymph # (Auto) 1.1 L (1.2-3.4) [place] # (Auto) 0.9 H (0.1-0.6) Eos # (Auto) 0.0 (0.0-0.7) Baso # (Auto) 0.02 (0.0-2.0) K/mm3 Sodium 140 (132-148) mmol/L Potassium 3.5 L (3.6-5.0) mmol/L Chloride 108 H (98-107) mmol/L Carbon Dioxide 26 (21-33) mmol/L Anion Gap 10 (10-20) BUN 22 H (7-21) mg/dL Creatinine 0.7 L (0.8-1.5) mg/dl Est GFR ( Amer) > 60 Est GFR (Non-Af Amer) > 60 POC Glucose (mg/dL) 101 (65-110) mg/dL Random Glucose 92 (70-110) mg/dL Calcium 8.4 (8.4-10.5) mg/dL Total Bilirubin 0.7 (0.2-1.3) mg/dL AST 30 (17-59) U/L ALT 39 (7-56) U/L Alkaline Phosphatase 109 (38-126) U/L Total Protein 5.7 L (5.8-8.3) g/dL Albumin 2.7 L (3.0-4.8) g/dL Globulin 3.0 gm/dL Albumin/Globulin Ratio 0.9 L (1.1-1.8) Procalcitonin (0.19-0.49) NG/ML 06/17/17 Range/Units 05:00 WBC (4.5-11.0) 10^3/ul RBC (3.5-6.1) 10^6/uL Hgb (14.0-18.0) g/dL Hct (42.0-52.0) % MCV (80.0-105.0) fl MCH (25.0-35.0) pg MCHC (31.0-37.0) g/dl RDW (11.5-14.5) % Plt Count (120.0-450.0) 10^3/uL MPV (7.0-11.0) fl Gran % (50.0-68.0) % Lymph % (Auto) (22.0-35.0) % [place] % (Auto) (1.0-6.0) % Eos % (Auto) (1.5-5.0) % Baso % (Auto) (0.0-3.0) % Gran # (1.4-6.5) Lymph # (Auto) (1.2-3.4) [place] # (Auto) (0.1-0.6) Eos # (Auto) (0.0-0.7) Baso # (Auto) (0.0-2.0) K/mm3 Sodium (132-148) mmol/L Potassium (3.6-5.0) mmol/L Chloride (98-107) mmol/L Carbon Dioxide (21-33) mmol/L Anion Gap (10-20) BUN (7-21) mg/dL Creatinine (0.8-1.5) mg/dl Est GFR ( Amer) Est GFR (Non-Af Amer) POC Glucose (mg/dL) (65-110) mg/dL Random Glucose (70-110) mg/dL Calcium (8.4-10.5) mg/dL Total Bilirubin (0.2-1.3) mg/dL AST (17-59) U/L ALT (7-56) U/L Alkaline Phosphatase (38-126) U/L Total Protein (5.8-8.3) g/dL Albumin (3.0-4.8) g/dL Globulin gm/dL Albumin/Globulin Ratio (1.1-1.8) Procalcitonin 0.13 L (0.19-0.49) NG/ML Laboratory Results - last 24 hr 06/17/17 06/17/17 06/18/17 05:00 21:38 05:00 WBC 10.8 RBC 3.40 L Hgb 10.2 L Hct 31.6 L MCV 92.9 MCH 30.0 MCHC 32.3 RDW 12.7 Plt Count 233 MPV 9.8 Gran % 81.7 H Lymph % (Auto) 9.8 L [place] % (Auto) 8.0 H Eos % (Auto) 0.3 L Baso % (Auto) 0.2 Gran # 8.82 H Lymph # (Auto) 1.1 L [place] # (Auto) 0.9 H Eos # (Auto) 0.0 Baso # (Auto) 0.02 Sodium Potassium Chloride Carbon Dioxide Anion Gap BUN Creatinine Est GFR ( Amer) Est GFR (Non-Af Amer) POC Glucose (mg/dL) 101 Random Glucose Calcium Total Bilirubin AST ALT Alkaline Phosphatase Total Protein Albumin Globulin Albumin/Globulin Ratio Procalcitonin 0.13 L 06/18/17 05:00 WBC RBC Hgb Hct MCV MCH MCHC RDW Plt Count MPV Gran % Lymph % (Auto) [place] % (Auto) Eos % (Auto) Baso % (Auto) Gran # Lymph # (Auto) [place] # (Auto) Eos # (Auto) Baso # (Auto) Sodium 140 Potassium 3.5 L Chloride 108 H Carbon Dioxide 26 Anion Gap 10 BUN 22 H Creatinine 0.7 L Est GFR ( Amer) > 60 Est GFR (Non-Af Amer) > 60 POC Glucose (mg/dL) Random Glucose 92 Calcium 8.4 Total Bilirubin 0.7 AST 30 ALT 39 Alkaline Phosphatase 109 Total Protein 5.7 L Albumin 2.7 L Globulin 3.0 Albumin/Globulin Ratio 0.9 L Procalcitonin Critical Care Progress Note - Nutrition Nutrition: Nutrition Category Date Time Status Heart Healthy Diet [DIET] Diets 06/17/17 Dinner Ordered Assessment/Plan - Assessment and Plan (Free Text) Plan: Patient seen and examined, on rounds with resident, agree with note with following additions/exceptions: Patient is 87yo male with PMH of Dementia, hypertension, OA who was presents with subdural hematoma, and PNA. Currently afebrile, HD stable, comfortable in NAD, no focal deficits. Repeat CT head done which has been note. Cont with neuro checks q4hr, follow up cultures, Abx to cover CAP, follow up neurology, Neurosurgery, BP control DNR/DNI, STABLE transfer to remote tele
[2017-06-18] MEDS ORDERED: Bupivacaine 0.5% Inj(30mL) IJ ONE (12:16)
[2017-06-18] MEDS ORDERED: MethylPREDNISolone Depo 40 mg/ml Inj IM ONE (12:16)
[2017-06-18 12:30] LABS: BODY FLUID TYPE PERITONEAL
[2017-06-18 13:16] LABS: BF GROSS APPEARANCE CLOUDY (CLEAR); BODY FLUID MONO/MACROPHAGE 0 % (0-0); BODY FLUID TOTAL COUNT 100 (0-0)
--- NOTE | 2017-06-18 15:05 | PN ---
DATE: SUBJECTIVE: I saw him in the Intensive Care Unit, sitting up out of bed to chair to a commode, a little bit constipated. Family is present. They have a lot of questions to me, I went over his CAT scans and labs and x-rays. We are going to give him some Colace, also his right knee is very swollen and inflamed. I will call in Dr. Fung, orthopedic doctor, to help us. Maybe aspirate and inject. He is currently on Tylenol, Apresoline, Bactroban. I added Colace and Dilaudid for pain, Haldol, potassium replacement, Norvasc, Protonix, Rocephin and Zithromax for possible pneumonia. PHYSICAL EXAMINATION GENERAL: He is alert and talking. VITAL SIGNS: He has a temperature of 98.3, he has 73 pulse, 14 respiratory rate, 154/88 blood pressure. HEENT: Head is atraumatic, normocephalic. His mouth is a bit dry. NECK: Supple. HEART: Regular rate. LUNGS: Decreased breath sounds bilaterally. No wheezes or rhonchi at this time. ABDOMEN: Soft, maybe mildly full, he needs to go to the bathroom. EXTREMITIES: The right knee is swollen, we will get Orthopedics involved. No edema. LABORATORY DATA: He has a 140 sodium; potassium is 3.5, potassium is replaced. BUN is 22, creatinine 0.7, improving. GFR is greater than 60. Sugar is 92, calcium is 8.4, total bilirubin is 0.7, AST is 30, ALT is 39, alkaline phosphatase 109, total protein is 5.7. He has a 10.8 white count, best it has been; 10.2 hemoglobin; 31.6 hematocrit with 233,000 platelets. ASSESSMENT AND PLAN: He is being seen by workday consultant, neurologist, Podiatry. We are going to call Orthopedics. If he gets his knees away, we will get Physical Therapy involved. We will see if there is any subacute rehab or whether to take him home with home services, but for right now, we see that the right subdural hematoma is fairly stable at this time. Severe right knee swelling and pain and osteoarthritis including pneumonia possibly, that was read on x-ray. Jef Prabhakar DO [facility] # [id number] KANA
--- NOTE | 2017-06-19 00:13 | CON ---
DATE: ORTHOPEDIC CONSULTATION LOCATION: An 87-year-old male in room 129, bed 2. HISTORY OF PRESENT ILLNESS: Patient was there to be seen for effusion of his right knee with tremendous pain by Dr. Prabhakar. His x-ray shows osteoarthritis, right knee with decreased joint space symmetrically and with a large effusion, so we prepped and draped the right knee, aspirated to 120 mL of turbid fluid, tinge green and we sent it to the lab for cell count, culture and crystals and before we injected Depo-Medrol, we irrigated out the joint c salinl to help to elude the inflammatory response, so this was done and once the saline was injected and reaspirated, we gave him Depo-Medrol and Marcaine for his pain relief. We sent the fluid for cell count, culture and crystals and we will keep pillow from being placed under his knee because he is developing a knee flexion contracture and we will do therapy for straight leg raising, strengthening, quads and ambulate with a walker. It looks like he has an inflammatory arthritis of right knee with an effusion. We will send the fluid for cell count, culture and crystals. Jonathan Fung DO [email or web address]
[2017-06-19] MEDS: Sodium Chloride 0.9% 1,000 ML IV SCH ×3 (04:00→21:18)
[2017-06-19] MEDS: Pantoprazole 40 mg EC Tab PO SCH (05:39)
[2017-06-19] MEDS: HYDROmorphone 0.5 mg/0.5 ml ISec IVP PRN (06:17)
[2017-06-19 06:34] LABS: BASO # 0.01 K/mm3 (0.0-2.0); BASO % 0.1 % (0.0-3.0); GRAN # 10.64 (1.4-6.5); GRAN % 89.1 % (50.0-68.0); HEMOGLOBIN 11.1 g/dL (14.0-18.0); LYMPH # 0.4 (1.2-3.4); LYMPH % 3.1 % (22.0-35.0); MEAN CELL VOLUME 93.3 fl (80.0-105.0); MEAN CORPUSCULAR HEMOGLOBIN 29.8 pg (25.0-35.0); MEAN PLATELET VOLUME 10.4 fl (7.0-11.0); MONO # 0.9 (0.1-0.6); MONO % 7.7 % (1.0-6.0); PLATELET COUNT 266 10^3/uL (120.0-450.0); RBC 3.72 10^6/uL (3.5-6.1); RED CELL DISTRIBUTION WIDTH 12.8 % (11.5-14.5); WHITE BLOOD COUNT 11.9 10^3/ul (4.5-11.0)
[2017-06-19 06:55] LABS: ALB/GLOB RATIO 0.9 (1.1-1.8); ALBUMIN 2.9 g/dL (3.0-4.8); ALT/SGPT 41 U/L (7-56); AST/SGOT 34 U/L (17-59); BLOOD UREA NITROGEN 27 mg/dL (7-21); GFR AFRICAN-AMERICAN > 60; GFR NON-AFRICAN AMERICAN > 60
[2017-06-19 08:49] LABS: ANISOCYTOSIS 1+; ATYPICAL LYMPHOCYTE 1 % (0.0-0.0); HYPOCHROMIA SLIGHT; LYMPHOCYTE 5 % (22.0-35.0); MONOCYTE 4 % (1.0-6.0); NEUTROPHIL 90 % (50.0-70.0); PLATELET ESTIMATE NORMAL (NORMAL)
[2017-06-19] MEDS: diltiaZEM IVPB 100mg in NS 100 ML IV PRN (10:41)
[2017-06-19] MEDS: cefTRIAXone 1 gm 1 GM/100 ML BAG IVPB SCH (11:00)
[2017-06-19] MEDS: Azithromycin 500MG/NS 250ml 500 MG/250 ML BAG IVPB SCH (11:00)
--- NOTE | 2017-06-19 14:33 | PN ---
DATE: 06/19/2017 LOCATION: An 87-year-old male in room 364, bed 1. SUBJECTIVE: In the morning, the patient had arthrocentesis done of his right knee for inflammatory arthritis. Fluid was sent for cell count culture and crystals. The cell count was quite high, which could happen in a pseudogout kind of case with inflammation of the arthritis itself. We will wait for the culture to come back and crystal analysis to be done. This morning, he feels better. He does have a small collection of effusion of the right knee, but we will pull off from re-tapping him until the culture comes back. It does not appear to be an acute infection because he does have motion of his knee. He is less tender. He had some benefit of the injection course on Marcaine last night, so we will see if it is just an arthritis, it will resolve on its own from the injection; if not, we will have to re-aspirate him if it gets worse, but we will follow him closely and wait for the fluid culture to come back. In the meantime, he will get up out of bed and mobilize with therapy. Jonathan Fung DO
--- NOTE | 2017-06-19 21:11 | CON ---
DATE: 06/19/2017 CARDIOLOGY CONSULTATION HISTORY OF PRESENT ILLNESS: The patient is an 87-year-old male, who apparently fell out of bed. There is a question of whether the patient had any loss of consciousness. PAST MEDICAL HISTORY: Notable for hypertension, osteoarthritis, and dementia. He has been complaining of diffuse body aches. In the emergency room, he was found to have a subdural hematoma on CT scan. While in the hospital, the patient went from normal sinus rhythm to atrial fibrillation up to a rate of 150 to 170. No angina noted. No shortness of breath noted. REVIEW OF SYSTEMS: Not available. PHYSICAL EXAMINATION: VITAL SIGNS: Blood pressure 180/100, the heart rate is currently 120, atrial fibrillation. NECK: Negative JVD. LUNGS: Without rales. HEART: Reveals a 2/6 systolic ejection murmur. EXTREMITIES: Without edema. LABORATORY DATA: EKG shows atrial fibrillation with nonspecific ST-T changes. Hemoglobin is 11.1. Chemistries: BUN and creatinine 27 and 0.7. The troponin is negative x1. Potassium is 4.2. IMPRESSION: 1. Status post fall. 2. Subdural hematoma. 3. Hypertension. 4. New-onset atrial fibrillation. 5. Osteoarthritis. 6. Dementia. 7. Decreased hearing. ASSESSMENT AND PLAN: Given these findings, we will start the patient on IV Cardizem to help control his heart rate. An echocardiogram has been ordered. We will hold Norvasc until we see what his blood pressure settles at after the IV Cardizem. Suresh Horton MD
--- NOTE | 2017-06-19 22:03 | CARD ---
APPROVED REPORT EKG Measurement Heart [id number] <Conclusion> Atrial fibrillation with rapid ventricular response with premature ventricular or aberrantly conducted complexes Moderate voltage criteria for LVH, may be normal variant Nonspecific ST and T wave abnormality, probably digitalis effect Abnormal ECG
[2017-06-20] MEDS: diltiaZEM IVPB 100mg in NS 100 ML IV PRN (02:00)
[2017-06-20] MEDS: Sodium Chloride 0.9% 1,000 ML IV SCH (03:00)
[2017-06-20] MEDS: Pantoprazole 40 mg EC Tab PO SCH (06:13)
[2017-06-20 06:32] LABS: BASO # 0.01 K/mm3 (0.0-2.0); BASO % 0.1 % (0.0-3.0); EOS % 0.1 % (1.5-5.0); GRAN # 11.33 (1.4-6.5); GRAN % 86.5 % (50.0-68.0); HEMOGLOBIN 10.4 g/dL (14.0-18.0); LYMPH # 0.7 (1.2-3.4); LYMPH % 5.4 % (22.0-35.0); MEAN CELL VOLUME 92.7 fl (80.0-105.0); MEAN CORPUSCULAR HEMOGLOBIN 30.2 pg (25.0-35.0); MEAN CORPUSCULAR HGB CONC 32.6 g/dl (31.0-37.0); MEAN PLATELET VOLUME 10.3 fl (7.0-11.0); MONO % 7.9 % (1.0-6.0); RBC 3.44 10^6/uL (3.5-6.1); WHITE BLOOD COUNT 13.1 10^3/ul (4.5-11.0)
[2017-06-20 06:56] LABS: ALB/GLOB RATIO 0.8 (1.1-1.8); ALBUMIN 2.5 g/dL (3.0-4.8); ALT/SGPT 63 U/L (7-56); AST/SGOT 53 U/L (17-59); BLOOD UREA NITROGEN 36 mg/dL (7-21); CALCIUM 8.5 mg/dL (8.4-10.5); GFR AFRICAN-AMERICAN > 60; GFR NON-AFRICAN AMERICAN > 60
--- NOTE | 2017-06-20 08:29 | PN ---
HOSPITAL COURSE: He is comfortable in bed. He had his knee aspirated and injected. I think it is helping. He is on IV antibiotics for possible pneumonia. He has a subdural hematoma, which is stable. His blood pressure is high. I adjusted his Norvasc to 10 mg. He is on Apresoline IV as needed, Bactroban ointment, Colace, Dilaudid, Haldol, Norvasc, Protonix, Rocephin, IV fluids, and Zithromax. PHYSICAL EXAMINATION: GENERAL: He is alert. He is confused, but pleasant. VITAL SIGNS: He has 99 temp, 115 pulse, 180/100 blood pressure. I bumped up his Norvasc to 10 mg. His respiratory rate is 20, 96% O2 sat on room air. HEENT: Head is atraumatic, normocephalic. He is alert. He is looking at me confused. HEART: Regular rate. LUNGS: Decreased breath sounds, but clear. ABDOMEN: Soft. EXTREMITIES: No edema. The right knee is less swollen than yesterday. LABORATORY DATA: He has a 11.9 white count, 11.1 hemoglobin, 34.7 hematocrit, 266 platelets. He has 140 sodium, potassium is 4.2, BUN 27, creatinine is 0.7. GFR is greater than 60. Sugar is 107. Calcium is 9, total bili is 0.5, AST is 34, ALT is 41, alk phos 136, total protein 6.2. ASSESSMENT AND PLAN: I am hoping we can get him to subacute rehab today as recommended by Physical Therapy. He had a fall. He has a subdural hematoma. He has a bad right knee. He has dementia. Family does not want him to be in subacute rehab, then maybe home with services. Hopefully, he will be discharged off today. We will talk to outreach and education social worker and foster care case manager. Jef Prabhakar DO
[2017-06-20] MEDS: Azithromycin 500MG/NS 250ml 500 MG/250 ML BAG IVPB SCH (09:40)
[2017-06-20] MEDS: cefTRIAXone 1 gm 1 GM/100 ML BAG IVPB SCH (09:41)
--- NOTE | 2017-06-20 12:58 | PN ---
DATE: SUBJECTIVE: I saw him this morning resting comfortably in bed. His right knee is much better and less swollen, not red. He can move it better. He is presently confused. He is being seen by Neuro, Orthopedics, Cardiology and I consulted Infectious Disease for an elevated white count. PHYSICAL EXAMINATION: VITAL SIGNS: He has a 97.7 temp, 62 pulse, 166/78 blood pressure, 19 respiratory rate, 96% O2 sat on 2 L nasal cannula. GENERAL: He is about to eat this morning. He is pleasantly confused. HEENT: Head is atraumatic, normocephalic. Throat is moist. NECK: Supple. HEART: Regular rate. LUNGS: Clear to auscultation with decreased breath sounds. ABDOMEN: Soft. EXTREMITIES: His right knee is much better, but it is a bad arthritic knee. MEDICATIONS: He is currently on Apresoline, Bactroban cream, Cardizem IV, Colace, Dulcolax, Haldol, Norvasc, Protonix, IV Rocephin, IV fluids, Tylenol. LABORATORY DATA: He has a 13.1 white count, it is going up; 10.4 hemoglobin; 31.9 hematocrit with a [address] Wright for the elevated white count on the antibiotics. His sodium is 139, potassium 3.8, BUN is 36, creatinine 0.7, GFR is greater than 60, sugar is 96, calcium is 8.5, total bili is 0.3, AST is 63, ALT is 104. He had 54,152 white cells in the knee, could have an infected knee. ASSESSMENT AND PLAN: I will call in Dr. Wright for his evaluation. Might need to change the antibiotics around. We will check his labs tomorrow. I have put an order him for Transitional Care Unit evaluation, so he can finish off the treatment there plus give him physical therapy and it sounds like he is going to need to have more IV antibiotics. He also has atrial fibrillation, he is on IV Cardizem. Jef Prabhakar DO
--- NOTE | 2017-06-20 13:23 | PN ---
DATE: 06/20/2017 CARDIOLOGY FOLLOWUP SUBJECTIVE: The patient's heart rate is better controlled on IV Cardizem. PHYSICAL EXAMINATION: VITAL SIGNS: Currently, the blood pressure is 166/78, the heart rates is in the 60s to 70s, atrial fibrillation. NECK: Negative JVD. LUNGS: Without rales. HEART: Reveals S1, S2. EXTREMITIES: Without edema. LABORATORY DATA: Hemoglobin is 10.4. Chemistries: BUN and creatinine of 36 and 0.7. IMPRESSION: 1. Status post subdural hematoma secondary to fall. 2. New-onset atrial fibrillation. 3. Heart rate is better controlled on IV Cardizem. 4. Hypertension. 5. Anemia. PLAN: Given these findings, we will change his IV Cardizem to p.o. Cardizem. The patient cannot be anticoagulated given his documented recent subdural hematoma. Suresh Horton MD
--- NOTE | 2017-06-20 16:04 | PN ---
DATE: 06/20/2017 An 87-year-old male in room 372, bed 2. SUBJECTIVE: The patient came into the hospital on 06/16/2017 with a swollen right knee. Aspiration arthrocentesis done; so far, the cultures negative. He had a few calcium pyrophosphate crystals of pseudogout and high white count, but since the aspiration done, he is feeling much better. Still there is a boggy synovium, but he does have pain to touch and he can move his knee a little better still has some,will start trouble with profound weakness doing physical therapy, try to strengthen his legs; so, he has decreased chance of falling and the therapist seeing him and noticed that there is much less pain. We have to work on strengthening the muscles. So, we will wait a day or two for the final culture report. has no more and no more pain and awilling. Right now, he has less pain and less swelling; so, we will continue therphy and oob. continue with conservative therapy and hopefully his arthritis will feel better when he gets his physical therapy and mobilization with a walker. Jonathan Fung DO [facility]
[2017-06-20] MEDS: Cefepime 1gm in NS 100ml 1 GM/100 ML BAG IVPB SCH (22:01)
[2017-06-21] MEDS: Sodium Chloride 0.9% 1,000 ML IV SCH ×2 (00:39→09:20)
[2017-06-21 04:18] VITALS: O2SAT 94
--- NOTE | 2017-06-21 04:58 | CON ---
DATE: 06/20/2017 LOCATION: The patient seen earlier this morning in room 372, bed 2. CHIEF COMPLAINT: Elevated WBC count x1 day duration. HISTORY OF PRESENT ILLNESS: This is an 87-year-old male with history of coronary artery disease, history of osteoarthritis, hypertension, prostate cancer and arthritis, who has depression and deafness, dementia, anxiety, who was admitted on the with a diagnosis of subdural hemorrhage and abdominal pain. The patient had a fall at home. In the emergency room, the patient did have a fever and emergency documentation states the patient was having joint pain. In the hospital, the patient has had antibiotics and the patient was admitted on the and had a knee evaluation 3 days later and knee aspirated. The patient has mild shortness of breath, no chest pain. He is very difficult to communicate with. No abdominal pain at this time. No diarrhea or constipation. PAST MEDICAL HISTORY: Significant for coronary artery disease, hypertension, osteoarthritis, prostate cancer, arthritis, depression, deafness, dementia and anxiety. PAST SURGICAL HISTORY: Noncontributory. ALLERGIES: THE PATIENT HAS NO KNOWN ALLERGIES. MEDICATIONS AT HOME: Include tramadol, amlodipine and Xanax. PHYSICAL EXAMINATION: VITAL SIGNS: The patient is in bed with a temperature of 98, T-max in the emergency room on admission was 100.6, respiratory rate of 18, goes up to 28 on day before yesterday and up to 22 on the and and heart rate of 68 at this time which was up to 94 yesterday and 120 yesterday. Blood pressure 165/70. HEENT: Unremarkable. NECK: Supple. LUNGS: Decreased breath sounds. HEART: Normal S1, S2. ABDOMEN: Soft, nontender. LABORATORY EXAMINATION: Reveals a white count of 13,100, hemoglobin of 10, platelets of 272 and 86% granulocytosis, coagulation is noted. BUN of 36, creatinine of 0.7. Procalcitonin is 0.13. Urinalysis is noted. It says peritoneal fluid, I believe it is joint fluid, at 96% and the fluid comment it says is from the right knee but the fluid source it says ____ peritoneal and microbiology reveals the knee culture - the right knee has negative MRSA, no growth, and the blood cultures are negative. The pathology report reveals calcium pyrophosphate crystals are identified and it is negative for uric acid crystals. ASSESSMENT AND PLAN: An 87-year-old with coronary artery disease, hypertension, prostate cancer, depression and deafness, dementia with systemic inflammatory response syndrome with leukocytosis and tachycardia and dyspnea, must rule out healthcare-associated pneumonia in the patient with subdural hematoma secondary to a fall, new onset of atrial fibrillation and pseudogout, must rule out septic arthritis although the wbc's in the knee fluid is elevated, the gram stain is negative and cultures thus far are negative. We will treat the patient with Maxipime and doxycycline. Order repeat blood cultures, urine cultures, sputum culture, urinalysis, and a chest x-ray, and follow the wbc's and culture results and make further recommendations. Zachary Wright MD
[2017-06-21] MEDS: Pantoprazole 40 mg EC Tab PO SCH (06:22)
[2017-06-21] MEDS: Cefepime 1gm in NS 100ml 1 GM/100 ML BAG IVPB SCH ×2 (06:22→14:57)
[2017-06-21 06:45] LABS: HEMOGLOBIN 10.2 g/dL (14.0-18.0); MEAN CELL VOLUME 91.7 fl (80.0-105.0); MEAN CORPUSCULAR HEMOGLOBIN 30.3 pg (25.0-35.0); RBC 3.37 10^6/uL (3.5-6.1); WHITE BLOOD COUNT 9.4 10^3/ul (4.5-11.0)
[2017-06-21 07:11] LABS: ALB/GLOB RATIO 0.8 (1.1-1.8); ALBUMIN 2.4 g/dL (3.0-4.8); ALT/SGPT 59 U/L (7-56); AST/SGOT 41 U/L (17-59); BLOOD UREA NITROGEN 27 mg/dL (7-21); CALCIUM 8.2 mg/dL (8.4-10.5); GFR AFRICAN-AMERICAN > 60; GFR NON-AFRICAN AMERICAN > 60
--- NOTE | 2017-06-21 09:50 | RAD ---
PROCEDURE: CHEST RADIOGRAPH, 1 VIEW HISTORY: inc wbc COMPARISON: 06/17/2017 FINDINGS: LUNGS: Clear. PLEURA: Small pleural effusions CARDIOVASCULAR: Mild cardiomegaly. Mild vascular congestion OSSEOUS STRUCTURES: No significant abnormalities. VISUALIZED UPPER ABDOMEN: Normal. OTHER FINDINGS: None. IMPRESSION: Mild cardiomegaly. Mild vascular congestion with small effusions
[2017-06-21 11:23] LABS: URINE BILIRUBIN NEGATIVE (NEGATIVE); URINE BLOOD NEGATIVE (NEGATIVE); URINE GLUCOSE (UA) NEGATIVE (NEGATIVE); URINE LEUKOCYTE ESTERASE NEGATIVE Leu/uL (NEGATIVE); URINE PROTEIN NEGATIVE mg/dL (<30 mg/dL); URINE UROBILINOGEN 0.2 E.U./dL (<1 E.U./dL)
[2017-06-21 11:29] LABS: URINE APPEARANCE CLEAR (CLEAR); URINE COLOR YELLOW (YELLOW)
[2017-06-21 12:59] VITALS: RESP 18; TEMP 98
--- NOTE | 2017-06-21 14:15 | PN ---
DATE: 06/21/2017 CARDIOLOGY FOLLOWUP SUBJECTIVE: The patient is without distress. PHYSICAL EXAMINATION VITAL SIGNS: Blood pressure is 156/97, the heart rate is in the 90s. NECK: Negative JVD. LUNGS: Without rales. HEART: Reveals S1, S2. EXTREMITIES: Without edema. LABORATORY DATA: Hemoglobin is 10.2. Chemistries: BUN and creatinine is 27 and 0.7. IMPRESSION: 1. Hypertension. 2. Status post subdural hematoma. 3. Atrial fibrillation with a heart rate that is well controlled. 4. Anemia. PLAN: Given these findings, we will change his Cardizem to a long-acting Cardizem. Suresh Horton MD
--- NOTE | 2017-06-21 16:02 | PN ---
DATE: 06/21/2017 SUBJECTIVE: The patient was seen in 272, bed 2. No fevers and no chills. The patient's baseline is unchanged from yesterday. PHYSICAL EXAMINATION: VITAL SIGNS: Temperature is 98, blood pressure is 170/70, respiratory rate of 18, heart rate of 100. HEENT: Examination of HEENT is unremarkable. NECK: Supple. LUNGS: Have decreased breath sounds. HEART: Normal S1 and S2. ABDOMEN: Soft, nontender. LABORATORY DATA: Laboratory examination reveals the white count is down at 9.4, hemoglobin of 10, platelets 277, BUN of 27, creatinine of 0.7, procalcitonin 0.1. Urinalysis is noted. Wbc is noted. Microbiology reveals blood cultures are negative and Dr. Suresh Horton's note is reviewed and cultures are pending. Chest x-ray from yesterday is reported to be negative. ASSESSMENT AND PLAN: This is an 87-year-old male with coronary artery disease, hypertension, prostate cancer, depression, deafness, dementia, systemic inflammatory response syndrome, leukocytosis, tachycardia, dyspnea. Must rule out healthcare-associated pneumonia. Negative chest x-ray with a subdural hematoma, currently on Maxipime and doxycycline day #2 and procalcitonin was 0.10. May be able to discharged on p.o. doxycycline 100 mg p.o. b.i.d. x7 days. Zachary Wright MD
--- NOTE | 2017-06-22 06:43 | DS ---
HOSPITAL COURSE: He was recommended to go to TCU today. He is resting in bed. He is presently confused. He is doing better overall. He is off the IV Cardizem, is on p.o. He is on Apresoline, Bactroban cream, Cardizem p.o., Colace, Doryx p.o. Haldol, Maxipime IV which they could do at the TCU, Norvasc, Protonix, IV fluids, Tylenol. He is pleasantly confused. He was here with a fall with subdural hematoma. He had AFib, SIRS. I think he is ready enough to go to TCU. PHYSICAL EXAMINATION: VITAL SIGNS: 98.2 temperature, 79 pulse, 165/94, 151/77 blood pressure, 16 respiratory rate, 94% sat on room air. HEENT: Head is atraumatic, normocephalic. Throat is moist. NECK: Supple. HEART: Regular rate. LUNGS: Clear to auscultation. ABDOMEN: Soft. EXTREMITIES: No edema. LABORATORY DATA: He has 138 sodium, potassium 3.7, BUN is 27, creatinine 0.7, GFR is greater than 60, sugar is 93, calcium is 8.2, AST is 41, ALT is 69, alk phos 97, total protein is 5.2. He has a 9.4 white count better, 10.2 hemoglobin, 30.9 hematocrit with 277 platelets. ASSESSMENT AND PLAN: I am hoping he can go to TCU today. We will continue with aggressive treatment care over there. I will discuss with Case Management. Jef Prabhakar DO
[2017-06-22] MEDS ORDERED: diltiaZEM 180 mg/24 Hours CD Cap PO SCH (10:00)
[2017-06-22 11:33] VITALS: BP 170/94; PULSE 65
== END 2017-06-21 21:52 | disposition home or self-care (01) | DRG 85 ==
LOC: ED 17:18 → ERH 20:49 → CCU 21:49 → 3RNO 06-18 16:27 → 3RSO 06-19 10:44
PROVIDERS: ADMIT Family Medicine; ATTEND Family Medicine
PROC: 0S9C3ZZ Drainage of Right Knee Joint, Percutaneous Approach (ICD-10-PCS; principal; 2017-06-18)
PROC: 3E0U33Z Introduction of Anti-inflammatory into Joints, Percutaneous Approach (ICD-10-PCS; 2017-06-18)
PROC: 3E0U3BZ Introduction of Anesthetic Agent into Joints, Percutaneous Approach (ICD-10-PCS; 2017-06-18)
DX: S06.5X0A Traumatic subdural hemorrhage without loss of consciousness, initial encounter (principal); J18.9 Pneumonia, unspecified organism; M48.57XA Collapsed vertebra, not elsewhere classified, lumbosacral region, initial encounter for fracture; F05 Delirium due to known physiological condition; J90 Pleural effusion, not elsewhere classified; J98.11 Atelectasis; Z87.81 Personal history of (healed) traumatic fracture; D64.9 Anemia, unspecified; F03.90 Unspecified dementia, unspecified severity, without behavioral disturbance, psychotic disturbance, mood disturbance, and anxiety; H91.90 Unspecified hearing loss, unspecified ear; I10 Essential (primary) hypertension; I25.10 Atherosclerotic heart disease of native coronary artery without angina pectoris; I48.91 Unspecified atrial fibrillation; K57.30 Diverticulosis of large intestine without perforation or abscess without bleeding; K59.00 Constipation, unspecified; M06.4 Inflammatory polyarthropathy; M17.0 Bilateral primary osteoarthritis of knee; M19.042 Primary osteoarthritis, left hand; M19.041 Primary osteoarthritis, right hand; M46.90 Unspecified inflammatory spondylopathy, site unspecified; N20.0 Calculus of kidney; Z85.46 Personal history of malignant neoplasm of prostate; Z86.73 Personal history of transient ischemic attack (TIA), and cerebral infarction without residual deficits; Z87.891 Personal history of nicotine dependence; W18.12XA Fall from or off toilet with subsequent striking against object, initial encounter; Y92.009 Unspecified place in unspecified non-institutional (private) residence as the place of occurrence of the external cause